=== PATIENT | female | born 2000 | race African-American/Black ===

== ENCOUNTER 2018-05-12 18:14 | Inpatient (IN) ==
[2018-05-12] MEDS ORDERED: Piperacil/Tazo 4.5 GM Premix 4.5 GM/100 ML BAG IV.SIG STA (20:02)
[2018-05-12] MEDS ORDERED: Acetaminophen 325 MG Tablet PO ONE (20:04)
--- NOTE | 2018-05-12 20:11 | ED ---
HPI General Chief complaint: KENO MANAGER Stated complaint: KENO MANAGER Time Seen by Provider: 05/12/18 19:51 Source: patient Mode of arrival: ambulatory Limitations: no limitations History of Present Illness HPI Narrative: The patient is a 17-year-old female that has been treating herself empirically for yeast infection for about a month without any relief. She stated that she has been doing sitz bath and 2 days ago she started noticing a swelling of her right vulva. She is not sexually active last coitus was 3 months ago. She was seen 2 years at another facility for similar symptoms and was treated for BV. She has an irregular.. Is presenting with a temperature of 101.7 and a pulse of 125. She has irregular periods. She is on oral contraceptives and last period was sometime last month she cannot remember the exact date MD Complaint: dysuria, possible STD and genital swelling Onset (ago): month(s) (1) Location: labia (righ lower) Severity: moderate Severity scale (1-10): 10 Quality: Sharp Duration: constant Relieving factors: none Exacerbating factors: movement Patient : No Related Data : 0 Home Medications Medication Instructions Recorded Confirmed No Known Home Medications 05/12/18 05/12/18 Allergies Allergy/AdvReac Type Severity Reaction Status Date / Time No Known Allergies Allergy Verified 05/12/18 18:32 Review of Systems ROS: all other systems reviewed are negative [facility] Medical History Medical History Patient denies medical problems (Acute) Surgical History Surgical History No history of previous surgery (Acute) Social History Social History Substance History: No History of Abuse Second Hand Smoke Exposure: No Smoking Status: Never smoker How Often Do You Have a Drink Containing Alcohol: Never Recent Travel in [facility] within the Last 8 Weeks: No Recent Out of Country Travel within the Last 8 Weeks: No Immunization History Tetanus Immunization: >5 Years Hx Influenza Vaccine This Season: No Exam Narrative Exam Narrative: GENERAL:alert and oriented in no distress SKIN: Focused skin assessment warm/dry. HEAD: Atraumatic. Normocephalic. EYES: Pupils equal and round. No scleral icterus. No injection or drainage. ENT: No nasal bleeding or discharge. Mucous membranes pink and moist. NECK: Trachea midline. No JVD. CARDIOVASCULAR: Regular rhythm. Tachycardia no murmur appreciated. RESPIRATORY: No accessory muscle use. Clear to auscultation. Breath sounds equal bilaterally. GASTROINTESTINAL: Abdomen soft, non-tender, nondistended. Hepatic and splenic margins not palpable. MUSCULOSKELETAL: No obvious deformities. No clubbing. No cyanosis. No edema. NEUROLOGICAL: Awake and alert. No obvious cranial nerve deficits. Motor grossly within normal limits. Normal speech. PSYCHIATRIC: Appropriate mood and affect; insight and judgment normal. Other: The patient has swelling of the right lower labial fold she was reluctant with the pelvic exam to begin with and when I tried to further palpate she asked me to stop so I did. Unsure whether she has an abscess or Bartholin's cyst. There was no vaginal discharge on external observation. Patient was told that I cannot diagnose her if I cannot examine her and she understands. Still does not want me to continue with genitourinary exam. Course Hospital Course: She is afebrile on recheck. We consulted KENO MANAGER who will come and evaluate the patient at bedside. She did refuse pelvic exam and further interventions at this time. Reevaluation(s) Reevaluation #1: Patient is resting comfortably no distress heart rate 99 bpm afebrile. Temperature 98.9 respirations 16 O2 saturation 100% room air blood pressure 120/65. Capillary refill intact. Time: 22:39 Consultations Consultation #1: KENO MANAGER on-call is going to come and evaluate the patient at bedside. Time: 22:40 Initial Documented Vital Signs Temperature 101.7 F H 05/12/18 18:26 Pulse Rate 125 H 18 18:26 Respiratory Rate 20 18 18:26 Blood Pressure 119/58 L 05/12/18 18:26 Pulse Oximetry 98 05/12/18 18:26 Last Documented Vital Signs Temperature 97.8 F 05/13/18 01:18 Pulse Rate 98 H 05/13/18 01:18 Respiratory Rate 16 05/13/18 01:18 Blood Pressure 104/56 L 05/13/18 01:18 Pulse Oximetry 98 05/13/18 01:18 Medical Decision Making MDM Narrative Medical Screen Exam Complete: Yes Emergency Medical Condition: Yes Lab Data Result diagrams: 05/12/18 20:05 05/12/18 20:05 Lab Results 05/12/18 05/12/18 05/12/18 Range/Units 20:05 20:05 20:05 WBC 21.2 H (4.0-11.0) th/mm3 RBC 4.52 (4.00-5.30) mil/mm3 Hgb 13.2 (11.6-15.3) gm/dL Hct 39.4 (35.0-46.0) % MCV 87.2 (80.0-100.0) fL MCH 29.1 (27.0-34.0) pg MCHC 33.4 (32.0-36.0) % RDW 13.3 (11.6-17.2) % Plt Count 178 (150-450) th/mm3 MPV 10.2 (7.0-11.0) fL Neut % (Auto) 79.9 H (16.0-70.0) % Lymph % (Auto) 9.9 (9.0-44.0) % [place] % (Auto) 9.3 H (0.0-8.0) % Eos % (Auto) 0.6 (0.0-4.0) % Baso % (Auto) 0.3 (0.0-2.0) % Neut # (Auto) 17.0 H (1.8-7.7) th/mm3 Lymph # (Auto) 2.1 (1.0-4.8) th/mm3 [place] # (Auto) 2.0 H (0.0-0.9) th/mm3 Eos # (Auto) 0.1 (0.0-0.4) th/mm3 Baso # (Auto) 0.1 (0.0-0.2) th/mm3 WBC Differential . Differential Comment Auto diff final Sodium 139 (136-145) meq/L Potassium 3.1 L (3.5-5.1) meq/L Chloride 104 (98-107) meq/L Carbon Dioxide 24.1 (21.0-32.0) meq/L Anion Gap 11 (5-15) meq/L BUN 7 (7-18) mg/dL Creatinine 0.71 (0.50-1.00) mg/dL Estimated GFR Greater than 89 (>89) mL/min Random Glucose 108 H (74-106) mg/dL Lactic Acid (0.4-2.0) mmol/L Calcium 8.5 (8.5-10.1) mg/dL Total Bilirubin 0.3 (0.2-1.0) mg/dL AST 13 L (16-38) U/L ALT 16 (9-42) U/L Alkaline Phosphatase 95 (45-117) U/L Total Protein 8.3 H (6.4-8.2) g/dL Albumin 3.8 (3.4-5.0) g/dL Beta HCG, Quant Less than 1 (0-5) mIU/mL Urine Color (Yellw/Straw) Urine Clarity (Clear) Urine pH (5.0-8.5) Ur Specific [place] (1.002-1.035) Urine Protein (Neg-Trace) mg/dL Urine Glucose (UA) (Negative) mg/dL Urine Ketones (Negative) mg/dL Urine Occult Blood (Negative) Urine Nitrate (Negative) Urine Bilirubin (Negative) Urine Urobilinogen (Less than 2) mg/dL Ur Leukocyte Esterase (Negative) Urine WBC (0-5) /hpf Ur Squamous Epith Cells (0-5) /hpf Urine Mucus (Occasional) /lpf Micro UA Comment Urine Culture Comments 05/12/18 05/12/18 Range/Units 20:05 20:25 WBC (4.0-11.0) th/mm3 RBC (4.00-5.30) mil/mm3 Hgb (11.6-15.3) gm/dL Hct (35.0-46.0) % MCV (80.0-100.0) fL MCH (27.0-34.0) pg MCHC (32.0-36.0) % RDW (11.6-17.2) % Plt Count (150-450) th/mm3 MPV (7.0-11.0) fL Neut % (Auto) (16.0-70.0) % Lymph % (Auto) (9.0-44.0) % [place] % (Auto) (0.0-8.0) % Eos % (Auto) (0.0-4.0) % Baso % (Auto) (0.0-2.0) % Neut # (Auto) (1.8-7.7) th/mm3 Lymph # (Auto) (1.0-4.8) th/mm3 [place] # (Auto) (0.0-0.9) th/mm3 Eos # (Auto) (0.0-0.4) th/mm3 Baso # (Auto) (0.0-0.2) th/mm3 WBC Differential Differential Comment Sodium (136-145) meq/L Potassium (3.5-5.1) meq/L Chloride (98-107) meq/L Carbon Dioxide (21.0-32.0) meq/L Anion Gap (5-15) meq/L BUN (7-18) mg/dL Creatinine (0.50-1.00) mg/dL Estimated GFR (>89) mL/min Random Glucose (74-106) mg/dL Lactic Acid 1.2 (0.4-2.0) mmol/L Calcium (8.5-10.1) mg/dL Total Bilirubin (0.2-1.0) mg/dL AST (16-38) U/L ALT (9-42) U/L Alkaline Phosphatase (45-117) U/L Total Protein (6.4-8.2) g/dL Albumin (3.4-5.0) g/dL Beta HCG, Quant (0-5) mIU/mL Urine Color Madhuri (Yellw/Straw) Urine Clarity Cloudy H (Clear) Urine pH 5.0 (5.0-8.5) Ur Specific [place] 1.028 (1.002-1.035) Urine Protein 30 H (Neg-Trace) mg/dL Urine Glucose (UA) Negative (Negative) mg/dL Urine Ketones Trace H (Negative) mg/dL Urine Occult Blood Negative (Negative) Urine Nitrate Negative (Negative) Urine Bilirubin Negative (Negative) Urine Urobilinogen 4 or greater (Less than 2) mg/dL Ur Leukocyte Esterase Negative (Negative) Urine WBC 1 (0-5) /hpf Ur Squamous Epith Cells 19 (0-5) /hpf Urine Mucus Many H (Occasional) /lpf Micro UA Comment Culture not ind Urine Culture Comments Culture not ind Imaging Data Radiologist's impression: Abdomen/Pelvis CT 05/12/18 20:01 CONCLUSION: 1. 3.1 x 2.1 cm cystic structure in the right adnexa characteristic of an ovarian cyst. 2. Study is otherwise unremarkable. Chest X-Ray 05/12/18 20:01 CONCLUSION: No acute cardiopulmonary disease. Discharge Plan Discharge Disposition Patient Disposition: 30 Still Patient Discharge Condition Condition: Stable Discharge Details Diagnosis: Fever, Leukocytosis Physicians Team ED Provider: Zackery Aaron Primary Care Provider: Primary Care Rosy Toussaint Attending Provider: Paxton Cunningham Other Providers: Vanda Warren Discharge Interventions Interventions: ED Discharge Assessment Last Done: 05/13/18 01:22 Status ED Status: Left Department Discharge Information Discharge Date/Time: 05/13/18 01:23
[2018-05-12] MEDS ORDERED: Sod Chloride 0.9% Inj 1,000 ML IV.SIG SCH (20:15)
[2018-05-12] MEDS ORDERED: Sod Chloride 0.9% Inj 800 ML IV.SIG SCH (20:15)
--- NOTE | 2018-05-12 20:24 | XR ---
EXAM DATE: 05/12/2018 8:19 PM EDT AGE/SEX: 17 years / Female INDICATIONS: Lightheaded, dizziness, and vomiting. CLINICAL DATA: This is the patient's initial encounter. Patient reports that signs and symptoms have been present for 1 day and indicates a pain score of 0/10. MEDICAL/SURGICAL HISTORY: None. None. COMPARISON: No prior exams available for comparison. FINDINGS: A single AP view of the chest demonstrates the lungs to be symmetrically aerated without evidence of mass, infiltrate or effusion. The cardiomediastinal contours are unremarkable. Osseous structures a re intact. CONCLUSION: No acute cardiopulmonary disease. Electronically signed by: Stuart Dunham MD 05/12/2018 8:22 PM EDT
[2018-05-12 20:50] LABS: Baso # (Auto) 0.1 th/mm3 (0.0-0.2); Baso % (Auto) 0.3 % (0.0-2.0); Eos # (Auto) 0.1 th/mm3 (0.0-0.4); Eos % (Auto) 0.6 % (0.0-4.0); Hematocrit 39.4 % (35.0-46.0); Hemoglobin 13.2 gm/dL (11.6-15.3); Lymph # (Auto) 2.1 th/mm3 (1.0-4.8); Lymph % (Auto) 9.9 % (9.0-44.0); Mean Corpuscular HGB Conc 33.4 % (32.0-36.0); Mean Corpuscular Hemoglobin 29.1 pg (27.0-34.0); Mean Corpuscular Volume 87.2 fL (80.0-100.0); Mean Platelet Volume 10.2 fL (7.0-11.0); Mono % (Auto) 9.3 % (0.0-8.0); Neut % (Auto) 79.9 % (16.0-70.0); Platelet Count 178 th/mm3 (150-450); Red Blood Count 4.52 mil/mm3 (4.00-5.30); Red Cell Distribution Width 13.3 % (11.6-17.2); White Blood Count 21.2 th/mm3 (4.0-11.0)
--- NOTE | 2018-05-12 20:57 | CT ---
EXAM DATE: 05/12/2018 8:51 PM EDT AGE/SEX: 17 years / Female INDICATIONS: Right labial swelling past 2 days. CLINICAL DATA: This is the patient's initial encounter. Patient reports that signs and symptoms have been present for 1 day and indicates a pain score of 6/10. MEDICAL/SURGICAL HISTORY: None. None. RADIATION DOSE: 4.62 CTDI (mGy) COMPARISON: No prior exams available for comparison. TECHNIQUE: Multiple contiguous axial images were obtained through the abdomen. Images were obtained using multiple row detector helical technique. Using automated exposure control and adjustment of the mA and/or kV according to patient size, radiation dose was kept as low as reasonably achievable to o btain optimal diagnostic quality images. DICOM format image data is available electronically for rev iew and comparison. FINDINGS: Lower Lungs: The visualized lower lungs are clear. Liver: The liver has a homogeneous density without space-occupying lesion. There is no dilation of th e biliary tree. Spleen: Homogeneous density without enlargement. Pancreas: Unremarkable without mass or calcification. Kidneys: Normal in size and shape. No evidence of mass or hydronephrosis. Adrenal Glands: Unremarkable. Aorta: The aorta and proximal iliac vessels are grossly unremarkable without aneurysmal dilation. Bowel/Mesentery: Oral contrast was given limiting the sensitivity for detection of bowel pathology. The bowel loops are grossly unremarkable. The cecum and sigmoid colon have a normal configuration. Abdominal Wall: Intact. Retroperitoneum: No evidence of adenopathy in the retrocrural, para-aortic, or deep pelvic regions. Bladder: Contours are smooth. Reproductive Organs: The uterus and left ovary are unremarkable. There is a 3.1 x 2.1 cm cystic stru cture in the right adnexa. Inguinal: The inguinal region is unremarkable without evidence of adenopathy. Bony Structures: Unremarkable. CONCLUSION: 1. 3.1 x 2.1 cm cystic structure in the right adnexa characteristic of an ovarian cyst. 2. Study is otherwise unremarkable. Electronically signed by: Stuart Dunham MD 05/12/2018 8:55 PM EDT
[2018-05-12 20:58] LABS: Bilirubin,Urine Negative (Negative); Clarity,Urine Cloudy (Clear); Color,Urine Amber (Yellw/Straw); Glucose,Urine (UA) Negative (Negative); Leukocyte Esterase,Urine Negative (Negative); Mucus,Urine Many /lpf (Occasional); Nitrite,Urine Negative (Negative); Specific Gravity,Urine 1.028 (1.002-1.035); Squamous Epithelial Cell,Urine 19 /hpf (0-5); Urobilinogen,Urine 4 or Greater mg/dL (Less than 2)
[2018-05-12 21:11] LABS: Albumin 3.8 g/dL (3.4-5.0); Anion Gap 11 meq/L (5-15); Aspartate Aminotransferase 13 U/L (16-38); Blood Urea Nitrogen 7 mg/dL (7-18); Calcium 8.5 mg/dL (8.5-10.1); Carbon Dioxide 24.1 meq/L (21.0-32.0); Chloride 104 meq/L (98-107); Glomerular Filtration Rate Greater Than 89 mL/min (>89); Glucose,Random 108 mg/dL (74-106); Potassium 3.1 meq/L (3.5-5.1); Sodium 139 meq/L (136-145)
[2018-05-12 21:13] LABS: Alanine Aminotransferase 16 U/L (9-42)
[2018-05-12 21:14] LABS: Alkaline Phosphatase 95 U/L (45-117); Total Protein 8.3 g/dL (6.4-8.2)
[2018-05-12] MEDS ORDERED: Zolpidem Tartrate 5 MG Tablet PO PRN (23:51)
[2018-05-13] MEDS ORDERED: Piperacil/Tazo 4.5 GM Premix 4.5 GM/100 ML BAG IV.SIG SCH
[2018-05-13] MEDS: Potassium Chloride Inj 10 MEQ in Sodium Chloride 0.45 % Inj 1,000 ML IV.CONT SCH ×4 (01:35→22:35)
[2018-05-13] MEDS: Ibuprofen 600 MG Tablet PO PRN (03:11)
[2018-05-13] MEDS: Piperacil/Tazo 4.5 GM Premix 4.5 GM/100 ML BAG IV.SIG SCH ×3 (05:08→21:11)
[2018-05-13 08:31] LABS: Baso % (Auto) 0.2 % (0.0-2.0); Eos # (Auto) 0.1 th/mm3 (0.0-0.4); Eos % (Auto) 0.3 % (0.0-4.0); Hematocrit 34.8 % (35.0-46.0); Hemoglobin 11.7 gm/dL (11.6-15.3); Lymph # (Auto) 1.5 th/mm3 (1.0-4.8); Lymph % (Auto) 7.6 % (9.0-44.0); Mean Corpuscular HGB Conc 33.6 % (32.0-36.0); Mean Corpuscular Hemoglobin 29.4 pg (27.0-34.0); Mean Corpuscular Volume 87.7 fL (80.0-100.0); Mean Platelet Volume 9.8 fL (7.0-11.0); Mono # (Auto) 1.5 th/mm3 (0.0-0.9); Mono % (Auto) 7.4 % (0.0-8.0); Neut # (Auto) 16.8 th/mm3 (1.8-7.7); Neut % (Auto) 84.5 % (16.0-70.0); Platelet Count 157 th/mm3 (150-450); Red Blood Count 3.97 mil/mm3 (4.00-5.30); Red Cell Distribution Width 13.2 % (11.6-17.2); White Blood Count 19.9 th/mm3 (4.0-11.0)
[2018-05-13 09:11] LABS: Anion Gap 7 meq/L (5-15); Blood Urea Nitrogen 4 mg/dL (7-18); Calcium 7.6 mg/dL (8.5-10.1); Carbon Dioxide 24.9 meq/L (21.0-32.0); Chloride 109 meq/L (98-107); Glomerular Filtration Rate Greater Than 89 mL/min (>89); Glucose,Random 78 mg/dL (74-106); Potassium 3.4 meq/L (3.5-5.1); Sodium 141 meq/L (136-145)
--- NOTE | 2018-05-13 14:54 | P.PN ---
Subjective Interval history: Feeling ok. I am vomiting again now. I do not have any nausea now Can the IV fluids cause me to have loose stools My vulva on the right is still slightly tender. No headache, sob or other pains Physical Exam Vital signs: Vital Signs 05/12/18 18:26 05/12/18 21:50 05/13/18 01:18 Temperature 101.7 F H 98.9 F 97.8 F Pulse Rate 125 H 105 H 98 H Respiratory Rate 20 16 16 Blood Pressure 119/58 L 120/65 104/56 L Pulse Oximetry 98 100 98 05/13/18 08:00 05/13/18 12:00 Temperature 97.3 F L 98.5 F Pulse Rate 100 H 104 H Respiratory Rate 18 18 Blood Pressure 108/58 L 99/55 L Pulse Oximetry 98 99 Intake & Output 05/12/18 05/13/18 05/13/18 18:59 06:59 18:59 Intake Total 1999 1105 / 1105 Balance 1999 1105 / 1105 Weight 47.174 kg 48.9 kg Intake: IV 1999 1105 / 1105 KCl Inj 10 MEQ In 1/2 Normal 1005 / 1005 Saline Inj 1,000 ML @ 150 mls/ hr IV.CONT .Q6H42M JACINTA Rx#: [id number] Zosyn 4.5 GM Premix 4.5 gm In 200 / 200 100 / 100 100 ml @ 100 mls/hr IV.SIG Q8H JACINTA Rx#:[id number] NS Inj 800 ML @ Wide Open IV. 1800 / 1800 SIG .Q0M JACINTA Rx#:[id number] Other: # Voids 1 # Emeses 1 - Constitutional no acute distress - Routine HEENT Exam Head: Present: normocephalic, atraumatic - Routine Neck Exam Present: supple - Routine Abdominal Exam Present: soft, normoactive bowel sounds Results - Labs CBC & Chem 7: 05/13/18 07:27 05/13/18 07:27 Laboratory Results - last 24 hr 05/12/18 05/12/18 05/12/18 20:05 20:05 20:05 WBC 21.2 H RBC 4.52 Hgb 13.2 Hct 39.4 MCV 87.2 MCH 29.1 MCHC 33.4 RDW 13.3 Plt Count 178 MPV 10.2 Neut % (Auto) 79.9 H Lymph % (Auto) 9.9 Nicholas % (Auto) 9.3 H Eos % (Auto) 0.6 Baso % (Auto) 0.3 Neut # (Auto) 17.0 H Lymph # (Auto) 2.1 Nicholas # (Auto) 2.0 H Eos # (Auto) 0.1 Baso # (Auto) 0.1 WBC Differential . Differential Comment Auto diff final Sodium 139 Potassium 3.1 L Chloride 104 Carbon Dioxide 24.1 Anion Gap 11 BUN 7 Creatinine 0.71 Estimated GFR Greater than 89 Random Glucose 108 H Lactic Acid Calcium 8.5 Total Bilirubin 0.3 AST 13 L ALT 16 Alkaline Phosphatase 95 Total Protein 8.3 H Albumin 3.8 Beta HCG, Quant Less than 1 Urine Color Urine Clarity Urine pH Ur Specific [place] Urine Protein Urine Glucose (UA) Urine Ketones Urine Occult Blood Urine Nitrate Urine Bilirubin Urine Urobilinogen Ur Leukocyte Esterase Urine WBC Ur Squamous Epith Cells Urine Mucus Micro UA Comment Urine Culture Comments 05/12/18 05/12/18 05/13/18 20:05 20:25 07:27 WBC 19.9 H RBC 3.97 L Hgb 11.7 Hct 34.8 L MCV 87.7 MCH 29.4 MCHC 33.6 RDW 13.2 Plt Count 157 MPV 9.8 Neut % (Auto) 84.5 H Lymph % (Auto) 7.6 L Nicholas % (Auto) 7.4 Eos % (Auto) 0.3 Baso % (Auto) 0.2 Neut # (Auto) 16.8 H Lymph # (Auto) 1.5 Nicholas # (Auto) 1.5 H Eos # (Auto) 0.1 Baso # (Auto) 0.0 WBC Differential . Differential Comment Auto diff final Sodium Potassium Chloride Carbon Dioxide Anion Gap BUN Creatinine Estimated GFR Random Glucose Lactic Acid 1.2 Calcium Total Bilirubin AST ALT Alkaline Phosphatase Total Protein Albumin Beta HCG, Quant Urine Color Madhuri Urine Clarity Cloudy H Urine pH 5.0 Ur Specific [place] 1.028 Urine Protein 30 H Urine Glucose (UA) Negative Urine Ketones Trace H Urine Occult Blood Negative Urine Nitrate Negative Urine Bilirubin Negative Urine Urobilinogen 4 or greater Ur Leukocyte Esterase Negative Urine WBC 1 Ur Squamous Epith Cells 19 Urine Mucus Many H Micro UA Comment Culture not ind Urine Culture Comments Culture not ind 05/13/18 07:27 WBC RBC Hgb Hct MCV MCH MCHC RDW Plt Count MPV Neut % (Auto) Lymph % (Auto) Nicholas % (Auto) Eos % (Auto) Baso % (Auto) Neut # (Auto) Lymph # (Auto) Nicholas # (Auto) Eos # (Auto) Baso # (Auto) WBC Differential Differential Comment Sodium 141 Potassium 3.4 L Chloride 109 H Carbon Dioxide 24.9 Anion Gap 7 BUN 4 L Creatinine 0.58 Estimated GFR Greater than 89 Random Glucose 78 Lactic Acid Calcium 7.6 L D Total Bilirubin AST ALT Alkaline Phosphatase Total Protein Albumin Beta HCG, Quant Urine Color Urine Clarity Urine pH Ur Specific [place] Urine Protein Urine Glucose (UA) Urine Ketones Urine Occult Blood Urine Nitrate Urine Bilirubin Urine Urobilinogen Ur Leukocyte Esterase Urine WBC Ur Squamous Epith Cells Urine Mucus Micro UA Comment Urine Culture Comments Microbiology 05/12/18 20:02 Blood - Peripheral Aerobic Blood Culture - Preliminary No growth in 1 day 05/12/18 20:02 Blood - Peripheral Anaerobic Blood Culture - Preliminary No growth in 1 day 05/12/18 20:02 Blood - Peripheral Aerobic Blood Culture - Preliminary No growth in 1 day 05/12/18 20:02 Blood - Peripheral Anaerobic Blood Culture - Preliminary No growth in 1 day - Imaging Impressions Abdomen/Pelvis CT 05/12/18 20:01 CONCLUSION: 1. 3.1 x 2.1 cm cystic structure in the right adnexa characteristic of an ovarian cyst. 2. Study is otherwise unremarkable. Chest X-Ray 05/12/18 20:01 CONCLUSION: No acute cardiopulmonary disease. Assessment and Plan - Plan HD #2 FUO her wbc is still high and I see no source of infection. Her vulva is very slg tender and swollen but I do not believe this is the source. Will have ID specialist see her and for now continue IV abs. Hypokalemia Continue IV K+. Discussed Condition With: Patient
--- NOTE | 2018-05-13 16:39 | ECG ---
Date Performed: 05/13/2018 Time Performed: 00:34:19 PTAGE: 17 years EKG: SINUS TACHYCARDIA ABNORMAL RHYTHM ECG NO PREVIOUS TRACING DOCTOR: Paxton Carmen Interpretating Date/Time 05/13/2018 16:37:43
[2018-05-13] MEDS ORDERED: Vancomycin Consult Pharmacy 1 EACH OTHER SCH (19:00)
--- NOTE | 2018-05-13 19:00 | P.CONID ---
History of Present Illness Service: Infectious Disease Consult date: 05/13/18 Requesting Physician: Paxton Cunningham Reason for Consult: Evaluation and management of fever of unknown origin. Primary Care Provider: No Primary Care Physician History of Present Illness: Ms. Mccann is a 17-year-old -[place] female with no significant past medical history. Patient was admitted for evaluation of fever of unknown origin. Patient reports that approximately 2-3 days prior to admission she ate at a [employer] and 24 hours after that she started having nausea vomiting. Patient reports that she also stayed at a local hotel/resort and used their toiletries. Patient also reports having shaved in that area during the same time and reports she had tenderness in the right vulvar region. She reports white discharge per vaginally off and on. Patient continues to have fever during hospitalization and has an elevated white count as well suggestive of sepsis. Workup has been initiated and cultures are no growth so far. Dr. Cunningham of gynecology has been following the patient and reports that patient has not had any have any evidence of pelvic inflammatory disease in this admission. A UA was done which is negative. We will check GC and chlamydia as well as RPR. Infectious diseases consulted for evaluation and management of fever of unknown origin. Pertinent positives and negatives for evaluation of fever of unknown origin No rash No joint pains No recent travel No recent experimentation with other routes of sex such as oral anal. Patient denies any perirectal discomfort. Review of Systems All other systems reviewed negative except as stated in HPI PMFSH - History History Provided By: Patient - Medical History Medical History: Medical History (Last Reviewed 05/12/18 @ 20:09 by Zackery Aaron DO) Patient denies medical problems - Surgical History Surgical History: Surgical History (Last Reviewed 05/12/18 @ 20:09 by Zackery Aaron DO) No history of previous surgery - Tobacco History Second Hand Smoke Exposure: No Tobacco Use In Past 30 Days: No Smoking Status: Never smoker - Alcohol History How Often Do You Have a Drink Containing Alcohol: Never - Substance Use History Substance History: No History of Abuse - Travel History Recent Travel in the [place] Within the Last 8 Weeks: No Recent Travel Out of the Country Within the Last 8 Weeks: No - Immunization History Tetanus Immunization: >5 Years Hx Influenza Vaccine This Season: No Medications and Allergies Active Medications: Active Medications Hydrocodone Bitart/Acetaminophen ([place] 5/325) 1 tab PO Q4H PRN PRN Reason: PAIN 9-10 Last Admin: 05/13/18 16:05 Dose: 1 tab Sodium Chloride (Ns Inj) 1,000 mls @ 0 mls/hr IV.SIG .Q0M JACINTA Last Infusion: 05/13/18 05:56 Dose: Infused Sodium Chloride (Ns Inj) 800 mls @ 0 mls/hr IV.SIG .Q0M JACINTA Last Infusion: 05/13/18 05:57 Dose: Infused Piperacillin/Tazobactam/Dextrose (Zosyn 4.5 Gm Premix) 4.5 gm in 100 mls @ 100 mls/hr IV.SIG Q8H JACINTA Last Infusion: 05/13/18 13:51 Dose: Infused Potassium Chloride 10 meq/ (Sodium Chloride) 1,005 mls @ 150 mls/hr IV.CONT .Q6H42M JACINTA Last Admin: 05/13/18 16:48 Dose: 150 mls/hr Pharmacy Profile Note (Vancomycin Consult Pharmacy) 0 mls @ 0 mls/hr [facility] Ibuprofen (Motrin) 600 mg PO Q4H PRN PRN Reason: PAIN 2-8 Last Admin: 05/13/18 03:11 Dose: 600 mg Zolpidem Tartrate (Ambien) 5 mg PO HS PRN PRN Reason: INSOMNIA Allergies Allergy/AdvReac Type Severity Reaction Status Date / Time No Known Allergies Allergy Verified 05/12/18 18:32 Home Medications Medication Instructions Recorded Confirmed Type No Known Home Medications 05/12/18 05/12/18 History Exam Vital signs: Vital Signs 05/12/18 21:50 05/13/18 01:18 05/13/18 08:00 Temperature 98.9 F 97.8 F 97.3 F L Pulse Rate 105 H 98 H 100 H Respiratory Rate 16 16 18 Blood Pressure 120/65 104/56 L 108/58 L Pulse Oximetry 100 98 98 05/13/18 12:00 05/13/18 16:00 Temperature 98.5 F 98.3 F Pulse Rate 104 H 90 Respiratory Rate 18 18 Blood Pressure 99/55 L 98/53 L Pulse Oximetry 99 99 Intake & Output 05/13/18 05/13/18 05/14/18 06:59 18:59 06:59 Intake Total 1999 Balance 1999 Weight 48.9 kg Intake: IV 1999 KCl Inj 10 MEQ In 1/2 Normal 2009 Saline Inj 1,000 ML @ 150 mls/ hr IV.CONT .Q6H42M JACINTA Rx#: [id number] Zosyn 4.5 GM Premix 4.5 gm In 200 / 200 100 / 100 100 ml @ 100 mls/hr IV.SIG Q8H JAC[facility]TA Rx#:[id number] NS Inj 800 ML @ Wide Open IV. 1800 / 1800 SIG .Q0M JACINTA Rx#:[id number] Other: # Voids 1 4 # Bowel Movements 1 # [place] 1 Narrative: GENERAL: Well-nourished well-developed, not in acute distress SKIN: Cool and dry, no generalized rash HEAD: Atraumatic. Normocephalic. No temporal or scalp tenderness. EYES: Pupils equal round and reactive. Scleral icterus. No injection or drainage. No petechia ENT: Nothing abnormal detected NECK: Trachea midline. Supple, nontender, no meningeal signs. CARDIOVASCULAR: HS audible. RESPIRATORY: Clear to auscultation bilaterally. GASTROINTESTINAL: Abdomen soft nontender. MUSCULOSKELETAL: Extremities without clubbing, cyanosis. NEUROLOGICAL: Alert oriented 3. Nonfocal. REGIONAL EDUCATION MANAGER exam right labial folds significantly swollen compared to the other side especially on the part closer to the perirectal area with significant tenderness and induration noted. Psych cooperative IV line sites ok. Results - Labs CBC & Chem 7: 05/13/18 07:27 05/13/18 07:27 Labs: Laboratory Results - last 24 hr 05/12/18 05/12/18 05/12/18 20:05 20:05 20:05 WBC 21.2 H RBC 4.52 Hgb 13.2 Hct 39.4 MCV 87.2 MCH 29.1 MCHC 33.4 RDW 13.3 Plt Count 178 MPV 10.2 Neut % (Auto) 79.9 H Lymph % (Auto) 9.9 [place] % (Auto) 9.3 H Eos % (Auto) 0.6 Baso % (Auto) 0.3 Neut # (Auto) 17.0 H Lymph # (Auto) 2.1 [place] # (Auto) 2.0 H Eos # (Auto) 0.1 Baso # (Auto) 0.1 WBC Differential . Differential Comment Auto diff final Sodium 139 Potassium 3.1 L Chloride 104 Carbon Dioxide 24.1 Anion Gap 11 BUN 7 Creatinine 0.71 Estimated GFR Greater than 89 Random Glucose 108 H Lactic Acid Calcium 8.5 Total Bilirubin 0.3 AST 13 L ALT 16 Alkaline Phosphatase 95 Total Protein 8.3 H Albumin 3.8 Beta HCG, Quant Less than 1 Urine Color Urine Clarity Urine pH Ur Specific [place] Urine Protein Urine Glucose (UA) Urine Ketones Urine Occult Blood Urine Nitrate Urine Bilirubin Urine Urobilinogen Ur Leukocyte Esterase Urine WBC Ur Squamous Epith Cells Urine Mucus Micro UA Comment Urine Culture Comments 05/12/18 05/12/18 05/13/18 20:05 20:25 07:27 WBC 19.9 H RBC 3.97 L Hgb 11.7 Hct 34.8 L MCV 87.7 MCH 29.4 MCHC 33.6 RDW 13.2 Plt Count 157 MPV 9.8 Neut % (Auto) 84.5 H Lymph % (Auto) 7.6 L [place] % (Auto) 7.4 Eos % (Auto) 0.3 Baso % (Auto) 0.2 Neut # (Auto) 16.8 H Lymph # (Auto) 1.5 [place] # (Auto) 1.5 H Eos # (Auto) 0.1 Baso # (Auto) 0.0 WBC Differential . Differential Comment Auto diff final Sodium Potassium Chloride Carbon Dioxide Anion Gap BUN Creatinine Estimated GFR Random Glucose Lactic Acid 1.2 Calcium Total Bilirubin AST ALT Alkaline Phosphatase Total Protein Albumin Beta HCG, Quant Urine Color [place] Urine Clarity Cloudy H Urine pH 5.0 Ur Specific [place] 1.028 Urine Protein 30 H Urine Glucose (UA) Negative Urine Ketones Trace H Urine Occult Blood Negative Urine Nitrate Negative Urine Bilirubin Negative Urine Urobilinogen 4 or greater Ur Leukocyte Esterase Negative Urine WBC 1 Ur Squamous Epith Cells 19 Urine Mucus Many H Micro UA Comment Culture not ind Urine Culture Comments Culture not ind 05/13/18 07:27 WBC RBC Hgb Hct MCV MCH MCHC RDW Plt Count MPV Neut % (Auto) Lymph % (Auto) [place] % (Auto) Eos % (Auto) Baso % (Auto) Neut # (Auto) Lymph # (Auto) [place] # (Auto) Eos # (Auto) Baso # (Auto) WBC Differential Differential Comment Sodium 141 Potassium 3.4 L Chloride 109 H Carbon Dioxide 24.9 Anion Gap 7 BUN 4 L Creatinine 0.58 Estimated GFR Greater than 89 Random Glucose 78 Lactic Acid Calcium 7.6 L D Total Bilirubin AST ALT Alkaline Phosphatase Total Protein Albumin Beta HCG, Quant Urine Color Urine Clarity Urine pH Ur Specific [place] Urine Protein Urine Glucose (UA) Urine Ketones Urine Occult Blood Urine Nitrate Urine Bilirubin Urine Urobilinogen Ur Leukocyte Esterase Urine WBC Ur Squamous Epith Cells Urine Mucus Micro UA Comment Urine Culture Comments - Imaging Impressions Abdomen/Pelvis CT 05/12/18 20:01 CONCLUSION: 1. 3.1 x 2.1 cm cystic structure in the right adnexa characteristic of an ovarian cyst. 2. Study is otherwise unremarkable. Chest X-Ray 05/12/18 20:01 CONCLUSION: No acute cardiopulmonary disease. Assessment and Plan - Plan Sepsis present on admission Fever of unknown origin likely source appears to be the vulvar abscess/ cellulitis Vulvar abscess/cellulitis Leukocytosis Recommendations: Continue Zosyn IV for now Start vancomycin IV suspect MRSA related cellulitis secondary to shaving in that area Start Diflucan as patient is complained of white discharge can possible fungal element Check GC and Chlamydia PCR Check RPR If fevers persist despite antibiotics we will check HIV for acute retroviral infection Follow cultures Follow clinically Case discussed with Dr. Cunningham Case discussed with patient's mother after patient consented.
[2018-05-13] MEDS ORDERED: Vancomycin Inj 1,250 MG in Sodium Chlor 0.9% Inj 250 ML IV.SIG ONE (21:00)
[2018-05-13] MEDS: Fluconazole 100 MG Tablet PO SCH (21:11)
[2018-05-14] MEDS: Potassium Chloride Inj 10 MEQ in Sodium Chloride 0.45 % Inj 1,000 ML IV.CONT SCH ×3 (04:15→18:01)
[2018-05-14] MEDS: Piperacil/Tazo 4.5 GM Premix 4.5 GM/100 ML BAG IV.SIG SCH ×2 (04:16→12:01)
[2018-05-14] MEDS: Vancomycin Inj 750 MG in Sodium Chlor 0.9% Inj 250 ML IV.SIG SCH (09:17)
[2018-05-14] MEDS: Fluconazole 100 MG Tablet PO SCH (09:17)
[2018-05-14] MEDS: Ibuprofen 600 MG Tablet PO PRN (12:12)
--- NOTE | 2018-05-14 13:49 | P.PNID ---
Subjective Remarks: Ms. Mccann is a 17-year-old -[place]ish female with no significant past medical history. Patient was admitted for evaluation of fever of unknown origin. Patient reports that approximately 2-3 days prior to admission she ate at a [employer] and 24 hours after that she started having nausea vomiting. Patient reports that she also stayed at a local hotel/resort and used their toiletries. Patient also reports having shaved in that area during the same time and reports she had tenderness in the right vulvar region. She reports white discharge per vaginally off and on. Patient continues to have fever during hospitalization and has an elevated white count as well suggestive of sepsis. Workup has been initiated and cultures are no growth so far. Dr. Cunningham of gynecology has been following the patient and reports that patient has not had any have any evidence of pelvic inflammatory disease in this admission. A UA was done which is negative. We will check GC and chlamydia as well as RPR. Infectious diseases consulted for evaluation and management of fever of unknown origin. Pertinent positives and negatives for evaluation of fever of unknown origin No rash No joint pains No recent travel No recent experimentation with other routes of sex such as oral anal. Patient denies any perirectal discomfort. Overnight events reviewed. Fevers defervesced since addition of vancomycin IV Still complains of nausea. Reports inability to eat due to nausea but RN reports that she has a several times since last night. Denies any heartburn. Her epigastric pain or anything suggestive of reflux esophagitis. Patient is on Motrin as well as Lortab off and on. As needed. Antibiotics: Zosyn IV Vancomycin IV Lines: Line sites okay. Past Medical History: Reviewed. Allergies/Adverse Reactions: Allergies No Known Allergies Allergy (Verified 05/12/18 18:32) Objective Vital Signs 05/13/18 16:00 05/13/18 20:00 05/13/18 20:35 Temperature 98.3 F 98.5 F Pulse Rate 90 101 H 95 H Respiratory Rate 18 18 Blood Pressure 98/53 L 109/62 Pulse Oximetry 99 97 05/14/18 00:50 05/14/18 04:00 05/14/18 04:40 Temperature 98.9 F 98.3 F Pulse Rate 109 H 106 H 109 H Respiratory Rate 16 16 Blood Pressure 94/47 L 103/53 L Pulse Oximetry 98 95 05/14/18 08:00 05/14/18 12:00 Temperature 99.1 F 98.8 F Pulse Rate 108 H 99 H Respiratory Rate 17 17 Blood Pressure 111/54 L 110/66 Pulse Oximetry 96 98 Intake & Output 05/13/18 05/14/18 05/14/18 18:59 06:59 18:59 Intake Total 2109 2285 / 2285 1262.5 / 1262.5 Balance 2109 2285 / 2285 1262.5 / 1262.5 Weight 48.9 kg Intake: IV 2109 1705 / 1705 1262.5 / 1262.5 KCl Inj 10 MEQ In 1/2 Normal 2009 1005 / 1005 1005 / 1005 Saline Inj 1,000 ML @ 150 mls/ hr IV.CONT .Q6H42M JACINTA Rx#: [id number] Zosyn 4.5 GM Premix 4.5 gm In 100 / 100 200 / 200 100 ml @ 100 mls/hr IV.SIG Q8H JACINTA Rx#:[id number] Vancomycin Inj 750 MG In NS Inj 500 / 500 257.5 / 257.5 250 ML @ 250 mls/hr IV.SIG Q12H JACINTA Rx#:[id number] Oral 580 / 580 Other: # Voids 4 3 # Bowel Movements 1 05/12/18 20:02 Blood - Peripheral Aerobic Blood Culture - Preliminary No growth in 2 days 05/12/18 20:02 Blood - Peripheral Anaerobic Blood Culture - Preliminary No growth in 2 days 05/12/18 20:02 Blood - Peripheral Aerobic Blood Culture - Preliminary No growth in 2 days 05/12/18 20:02 Blood - Peripheral Anaerobic Blood Culture - Preliminary No growth in 2 days Lab - Hematology Results 05/12/18 05/13/18 20:05 07:27 WBC 21.2 H 19.9 H RBC 4.52 3.97 L Hgb 13.2 11.7 Hct 39.4 34.8 L MCV 87.2 87.7 MCH 29.1 29.4 MCHC 33.4 33.6 RDW 13.3 13.2 Plt Count 178 157 MPV 10.2 9.8 Neut % (Auto) 79.9 H 84.5 H Lymph % (Auto) 9.9 7.6 L [place] % (Auto) 9.3 H 7.4 Eos % (Auto) 0.6 0.3 Baso % (Auto) 0.3 0.2 Neut # (Auto) 17.0 H 16.8 H Lymph # (Auto) 2.1 1.5 [place] # (Auto) 2.0 H 1.5 H Eos # (Auto) 0.1 0.1 Baso # (Auto) 0.1 0.0 WBC Differential . . Differential Comment Auto diff final Auto diff final Lab - Chemistry Results 05/12/18 05/12/18 05/12/18 20:05 20:05 20:05 Sodium 139 Potassium 3.1 L Chloride 104 Carbon Dioxide 24.1 Anion Gap 11 BUN 7 Creatinine 0.71 Estimated GFR Greater than 89 Random Glucose 108 H Lactic Acid 1.2 Calcium 8.5 Total Bilirubin 0.3 AST 13 L ALT 16 Alkaline Phosphatase 95 Total Protein 8.3 H Albumin 3.8 Beta HCG, Quant Less than 1 05/13/18 07:27 Sodium 141 Potassium 3.4 L Chloride 109 H Carbon Dioxide 24.9 Anion Gap 7 BUN 4 L Creatinine 0.58 Estimated GFR Greater than 89 Random Glucose 78 Lactic Acid Calcium 7.6 L D Total Bilirubin AST ALT Alkaline Phosphatase Total Protein Albumin Beta HCG, Quant Imaging: ITS Impressions Abdomen/Pelvis CT 05/12/18 20:01 CONCLUSION: 1. 3.1 x 2.1 cm cystic structure in the right adnexa characteristic of an ovarian cyst. 2. Study is otherwise unremarkable. Chest X-Ray 05/12/18 20:01 CONCLUSION: No acute cardiopulmonary disease. Physical Exam: GENERAL: Well-nourished well-developed, not in acute distress SKIN: Cool and dry, no generalized rash HEAD: Atraumatic. Normocephalic. No temporal or scalp tenderness. EYES: Pupils equal round and reactive. Scleral icterus. No injection or drainage. No petechia ENT: Nothing abnormal detected NECK: Trachea midline. Supple, nontender, no meningeal signs. CARDIOVASCULAR: HS audible. RESPIRATORY: Clear to auscultation bilaterally. GASTROINTESTINAL: Abdomen soft nontender. MUSCULOSKELETAL: Extremities without clubbing, cyanosis. NEUROLOGICAL: Alert oriented 3. Nonfocal. DEPUTY PROGRAM MANAGER exam right labial folds significantly swollen compared to the other side especially on the part closer to the perirectal area with significant tenderness and induration noted. Slightly better than yesterday. Psych cooperative IV line sites ok. Assessment and Plan - Plan Sepsis present on admission Fever of unknown origin likely source appears to be the vulvar abscess/ cellulitis Vulvar abscess/cellulitis Leukocytosis Recommendations: DC Zosyn IV Start oral Bactrim DS Continue vancomycin IV suspect MRSA related cellulitis secondary to shaving in that area. Continue Diflucan as patient is complained of white discharge can possible fungal element Asked RN to send UA and Urine for GC and Chlamydia PCR Continue Sitz baths as it seems to have helped soften the area of induration. If fevers persist despite antibiotics we will check HIV for acute retroviral infection Follow cultures Follow clinically Case discussed with patient and RN. patient examined in presence of RN.
--- NOTE | 2018-05-14 15:38 | P.PN ---
Subjective Interval history: Doing ok, having some N/V today. The pelvic area feels a little better. Not eating well yet. Physical Exam Vital signs: Vital Signs 05/13/18 16:00 05/13/18 20:00 05/13/18 20:35 Temperature 98.3 F 98.5 F Pulse Rate 90 101 H 95 H Respiratory Rate 18 18 Blood Pressure 98/53 L 109/62 Pulse Oximetry 99 97 05/14/18 00:50 05/14/18 04:00 05/14/18 04:40 Temperature 98.9 F 98.3 F Pulse Rate 109 H 106 H 109 H Respiratory Rate 16 16 Blood Pressure 94/47 L 103/53 L Pulse Oximetry 98 95 05/14/18 08:00 05/14/18 12:00 Temperature 99.1 F 98.8 F Pulse Rate 108 H 99 H Respiratory Rate 17 17 Blood Pressure 111/54 L 110/66 Pulse Oximetry 96 98 Intake & Output 05/13/18 05/14/18 05/14/18 18:59 06:59 18:59 Intake Total 2109 2285 / 2285 1362.5 / 1362.5 Balance 2109 2285 / 2285 1362.5 / 1362.5 Weight 48.9 kg Intake: IV 2109 1705 / 1705 1362.5 / 1362.5 KCl Inj 10 MEQ In 1/2 Normal 2009 1005 / 1005 1005 / 1005 Saline Inj 1,000 ML @ 150 mls/ hr IV.CONT .Q6H42M [facility] Rx#: [id number] Zosyn 4.5 GM Premix 4.5 gm In 100 / 100 200 / 200 100 / 100 100 ml @ 100 mls/hr IV.SIG Q8H [facility]ACINTA Rx#:[id number] Vancomycin Inj 750 MG In NS Inj 500 / 500 257.5 / 257.5 250 ML @ 250 mls/hr IV.SIG Q12H JACINTA Rx#:[id number] Oral 580 / 580 Other: # Voids 4 3 # Bowel Movements 1 - Constitutional no acute distress - Routine HEENT Exam Head: Present: normocephalic - Routine Neck Exam Present: supple - Routine Respiratory Exam Present: CTA bilaterally - Routine Cardiovascular Exam Present: RRR - Routine Exam Patient deferred: external exam Groin: Present: tenderness, swelling (Right vulva is less swollen and less tender. ) Results - Labs CBC & Chem 7: 05/13/18 07:27 05/13/18 07:27 Laboratory Results - last 24 hr 05/13/18 22:30 Chlam trachomat DNA PCR Not detected N.gonorrhoeae DNA (PCR) Not detected Microbiology 05/12/18 20:02 Blood - Peripheral Aerobic Blood Culture - Preliminary No growth in 2 days 05/12/18 20:02 Blood - Peripheral Anaerobic Blood Culture - Preliminary No growth in 2 days 05/12/18 20:02 Blood - Peripheral Aerobic Blood Culture - Preliminary No growth in 2 days 05/12/18 20:02 Blood - Peripheral Anaerobic Blood Culture - Preliminary No growth in 2 days Assessment and Plan - Plan HD #3 FUO W/U is negative so far. CXs and ct and GC are all negative. Fever is resolving nicely on the antibiotics. Need to check the RPR as it is still pending. Hypokalemia. Better now and will recheck tomorrow. Continue IV K+ for now. Will slow down the IVF. Vomiting.. advised to eat bland food and stay away from water. Will get her some Gatoraid. Consider d/c home soon if ok with ID.
[2018-05-14] MEDS: Famotidine 20 MG Tablet PO SCH (22:26)
[2018-05-15] MEDS: Potassium Chloride Inj 10 MEQ in Sodium Chloride 0.45 % Inj 1,000 ML IV.CONT SCH ×2 (02:44→13:01)
[2018-05-15] MEDS: Vancomycin Inj 750 MG in Sodium Chlor 0.9% Inj 250 ML IV.SIG SCH (03:31)
[2018-05-15 04:10] LABS: Bilirubin,Urine Negative (Negative); Clarity,Urine Clear (Clear); Color,Urine Straw (Yellw/Straw); Glucose,Urine (UA) Negative (Negative); Hyaline Casts,Urine 1 /lpf (0-3); Leukocyte Esterase,Urine Negative (Negative); Mucus,Urine Few /lpf (Occasional); Nitrite,Urine Negative (Negative); Specific Gravity,Urine 1.006 (1.002-1.035); Squamous Epithelial Cell,Urine 1 /hpf (0-5)
--- NOTE | 2018-05-15 07:19 | MH ---
cc: Spenser Cunningham MD DATE OF ADMISSION: 05/13/2018 HISTORY OF PRESENT ILLNESS: Ms. Mccann is a 17-year-old black female who came to the emergency room after treating herself for a yeast infection. She has been having some right vulvar swelling for the past 2 days. She says it is slightly tender. She was seen in the emergency department, had a presenting temperature of 101.7 and a pulse of 125. Her white count was 21. The physician in the emergency department had a hard time doing the pelvic exam because she is quite shy. Because of that, he consulted me. She has a Nexplanon for prevention in her left arm. She denies any or GI symptoms. She does have some right vulvar tenderness for the last 2 days. PAST CONCRETE TECHNICIAN HISTORY: She has never had a Pap because of her age. She has not been active for several months. She has no history of STDs. She has no history of trauma down there. She has never seen a aircraft rigging and controls mechanic. PAST SURGICAL HISTORY: Negative. PAST MEDICAL HISTORY: Negative. SOCIAL HISTORY: She is single. She has never smoked, never drank, never taken drugs. FAMILY HISTORY: Noncontributory. ALLERGIES: NO KNOWN DRUG ALLERGIES. CURRENT MEDICATIONS: Nexplanon in her left arm for contraception. REVIEW OF SYSTEMS: HEAD AND NECK: She denies headaches. She denies any neck pain or stiffness. CHEST: She has no shortness of breath, cough or cold symptoms. No flu-like symptoms. She has no chest pressure or chest pain. ABDOMEN: She has no diarrhea or constipation. She does have some nausea and vomiting a day ago. PELVIC: She has irregular periods. She is on the Nexplanon. She has no signs or symptoms of except for the throwing up the other day, which has resolved. PHYSICAL EXAMINATION: GENERAL: Reveals a well-developed, well-nourished female resting comfortably in bed. VITAL SIGNS: Her initial temperature was 101.7. Followup temperature is 98.9. Her pulse was 105, her respirations are 16 and nonlabored. Her blood pressure is 120/65, her pulse oximetry is 100. HEENT: Normocephalic, atraumatic. NECK: Supple. Trachea is midline. There is no thyromegaly or adenopathy. CHEST: Clear to auscultation in all areas. HEART: Has a slightly tachycardic rate with no significant murmur. ABDOMEN: Soft and nontender. There is no hepatosplenomegaly or other masses. PELVIC: The right vulva is very mildly swollen. It is very mildly tender at the most. I do not believe there is an abscess there. It is more in the upper area than down by the [place] gland. There is no swelling in the [place] gland at all. Bimanual reveals no cervical motion tenderness. The uterus is not palpable. Adnexa are not palpable. There is no tenderness in this area at all. EXTREMITIES: There is no clubbing, cyanosis, or edema. LABORATORY WORKUP: Reveals a white count of 21.2, hemoglobin 13.2, hematocrit is 39. She had a left shift with 79.9 neutrophils. Her potassium is low at 3.1. Random glucose is 108. Liver functions are normal. Her total protein is up at 8.3. Her urinalysis reveals a specific gravity of 1.028. She got a little bit of protein in her urine and this culture is not indicated. Her chest x-ray is negative. Abdominal pelvic CT is essentially negative. ASSESSMENT AND PLAN: 1. Fever of unknown origin. Her temperature and her white count are definitely not from this little area and the right vulva is very mildly tender and very mildly swollen. We can imagine that this is the cause of that. 2. Dehydration. I will go ahead and hydrate her with some IV fluids overnight. 3. Hypokalemia. I will supplement her with 20 mEq of potassium overnight and we will check her SMA-7 in the morning. I do not know where this fever is coming from or the white count. I will have infectious disease see her. I decided to admit her since I was called down for a consultation, although I am not sure how to work up a fever of unknown origin. I will get infectious disease to help me in this area. In the meantime, I will give her some Zosyn IV. R. Willis Cunningham MD RJV/beatriz , 12:54 AM , 01:07 AM
[2018-05-15 08:11] LABS: Baso # (Auto) 0.1 th/mm3 (0.0-0.2); Baso % (Auto) 0.3 % (0.0-2.0); Eos # (Auto) 0.1 th/mm3 (0.0-0.4); Eos % (Auto) 0.3 % (0.0-4.0); Hematocrit 34.9 % (35.0-46.0); Hemoglobin 11.5 gm/dL (11.6-15.3); Lymph # (Auto) 2.1 th/mm3 (1.0-4.8); Lymph % (Auto) 10.2 % (9.0-44.0); Mean Corpuscular Hemoglobin 29.1 pg (27.0-34.0); Mean Corpuscular Volume 88.2 fL (80.0-100.0); Mean Platelet Volume 9.7 fL (7.0-11.0); Mono # (Auto) 1.7 th/mm3 (0.0-0.9); Neut # (Auto) 16.8 th/mm3 (1.8-7.7); Neut % (Auto) 81.2 % (16.0-70.0); Platelet Count 196 th/mm3 (150-450); Red Blood Count 3.95 mil/mm3 (4.00-5.30); Red Cell Distribution Width 13.3 % (11.6-17.2); White Blood Count 20.7 th/mm3 (4.0-11.0)
[2018-05-15] MEDS: Fluconazole 100 MG Tablet PO SCH (08:27)
[2018-05-15 08:44] LABS: Calcium 8.5 mg/dL (8.5-10.1); Carbon Dioxide 21.1 meq/L (21.0-32.0); Potassium 3.3 meq/L (3.5-5.1)
[2018-05-15] MEDS ORDERED: Pharmacy Ordered Lab Info OTHER ONE (08:45)
--- NOTE | 2018-05-15 13:25 | P.PNID ---
Subjective Remarks: Ms. Mccann is a 17-year-old -[place] female with no significant past medical history. Patient was admitted for evaluation of fever of unknown origin. Patient reports that approximately 2-3 days prior to admission she ate at a [employer] and 24 hours after that she started having nausea vomiting. Patient reports that she also stayed at a local hotel/resort and used their toiletries. Patient also reports having shaved in that area during the same time and reports she had tenderness in the right vulvar region. She reports white discharge per vaginally off and on. Patient continues to have fever during hospitalization and has an elevated white count as well suggestive of sepsis. Workup has been initiated and cultures are no growth so far. Dr. Cunningham of gynecology has been following the patient and reports that patient has not had any have any evidence of pelvic inflammatory disease in this admission. A UA was done which is negative. We will check GC and chlamydia as well as RPR. Infectious diseases consulted for evaluation and management of fever of unknown origin. Pertinent positives and negatives for evaluation of fever of unknown origin No rash No joint pains No recent travel No recent experimentation with other routes of sex such as oral anal. Patient denies any perirectal discomfort. Overnight events reviewed. No fevers WBC still at 20 K. No diarrhea, no BM since last 2 days. Reports inability to eat due to nausea, has ketones in the urine, Cr increased. Denies any heartburn. Her epigastric pain or anything suggestive of reflux esophagitis. Patient is on Motrin as well as Lortab off and on. As needed. Antibiotics: Bactrim Diflucan Lines: Line sites okay. Past Medical History: Reviewed. Allergies/Adverse Reactions: Allergies No Known Allergies Allergy (Verified 05/12/18 18:32) Objective Vital Signs 05/14/18 16:00 05/14/18 20:50 05/15/18 00:15 Temperature 98.5 F 97.8 F Pulse Rate 95 H 94 H 98 H Respiratory Rate 17 18 Blood Pressure 107/65 103/57 L Pulse Oximetry 97 96 05/15/18 00:41 05/15/18 04:55 05/15/18 08:00 Temperature 98.1 F 98.1 F 98.4 F Pulse Rate 97 H 105 H 89 Respiratory Rate 18 18 18 Blood Pressure 102/59 L 106/59 L 116/57 L Pulse Oximetry 96 96 97 05/15/18 12:00 Temperature 98.5 F Pulse Rate 87 Respiratory Rate 19 Blood Pressure 111/57 L Pulse Oximetry 96 Intake & Output 05/14/18 05/15/18 05/15/18 18:59 06:59 18:59 Intake Total 2807.5 / 2807.5 1300 / 1300 1005 / 1005 Output Total 880 / 880 Balance 2807.5 / 2807.5 420 / 420 1005 / 1005 Weight 48.3 kg 49 kg Intake: IV 1847.5 / 1847.5 520 / 520 1005 / 1005 KCl Inj 10 MEQ In 1/2 Normal 1490 / 1490 520 / 520 1005 / 1005 Saline Inj 1,000 ML @ 100 mls/ hr IV.CONT .Q10H3M [facility] Rx#: [id number] Zosyn 4.5 GM Premix 4.5 gm In 100 / 100 100 ml @ 100 mls/hr IV.SIG Q8H [facility] Rx#:[id number] Vancomycin Inj 750 MG In NS Inj 257.5 / 257.5 250 ML @ 250 mls/hr IV.SIG Q12H [facility] Rx#:[id number] Oral 960 / 960 780 / 780 Output: Urine 880 / 880 Other: # Voids 5 05/12/18 20:02 Blood - Peripheral Aerobic Blood Culture - Preliminary No growth in 3 days 05/12/18 20:02 Blood - Peripheral Anaerobic Blood Culture - Preliminary No growth in 3 days 05/12/18 20:02 Blood - Peripheral Aerobic Blood Culture - Preliminary No growth in 3 days 05/12/18 20:02 Blood - Peripheral Anaerobic Blood Culture - Preliminary No growth in 3 days Lab - Hematology Results 05/15/18 07:10 WBC 20.7 H RBC 3.95 L Hgb 11.5 L Hct 34.9 L MCV 88.2 MCH 29.1 MCHC 33.0 RDW 13.3 Plt Count 196 MPV 9.7 Neut % (Auto) 81.2 H Lymph % (Auto) 10.2 [place] % (Auto) 8.0 Eos % (Auto) 0.3 Baso % (Auto) 0.3 Neut # (Auto) 16.8 H Lymph # (Auto) 2.1 [place] # (Auto) 1.7 H Eos # (Auto) 0.1 Baso # (Auto) 0.1 WBC Differential . Differential Comment Auto diff final Lab - Chemistry Results 05/15/18 07:10 Sodium 142 Potassium 3.3 L Chloride 108 H Carbon Dioxide 21.1 Anion Gap 13 BUN 5 L Creatinine 1.06 H Estimated GFR 81 L Random Glucose 77 Calcium 8.5 D Imaging: ITS Impressions Abdomen/Pelvis CT 05/12/18 20:01 CONCLUSION: 1. 3.1 x 2.1 cm cystic structure in the right adnexa characteristic of an ovarian cyst. 2. Study is otherwise unremarkable. Chest X-Ray 05/12/18 20:01 CONCLUSION: No acute cardiopulmonary disease. Physical Exam: GENERAL: Well-nourished well-developed, not in acute distress SKIN: Cool and dry, no generalized rash HEAD: Atraumatic. Normocephalic. No temporal or scalp tenderness. EYES: Pupils equal round and reactive. Scleral icterus. No injection or drainage. No petechia ENT: Nothing abnormal detected NECK: Trachea midline. Supple, nontender, no meningeal signs. CARDIOVASCULAR: HS audible. RESPIRATORY: Clear to auscultation bilaterally. GASTROINTESTINAL: Abdomen soft nontender. MUSCULOSKELETAL: Extremities without clubbing, cyanosis. NEUROLOGICAL: Alert oriented 3. Nonfocal. COMPUTER ASSISTANT exam right labial fold with much reduced induration, reduced tenderness. Close to the buttock area still some tenderness. Refused Rectal exam. Denies any rectal symptoms. Psych cooperative IV line sites ok. Assessment and Plan - Plan Sepsis present on admission Fever of unknown origin likely source appears to be the vulvar abscess/ cellulitis Vulvar abscess/cellulitis Leukocytosis Recommendations: DC oral Bactrim DS since Cr increased after it started. DC Vanco IV y. Start Ceftriaxone IV Start Flagyl IV Start Oral Zyvox. Hydration and electrolyte correction per Dw : GI consult to address nausea vomiting persistent. Continue Diflucan as patient is complained of white discharge can possible fungal element Continue Sitz baths as it seems to have helped soften the area of induration. Follow cultures Follow clinically Case discussed with patient and RN. patient examined in presence of RN.
[2018-05-15] MEDS: Linezolid 600 MG Tablet PO SCH ×2 (13:39→21:23)
--- NOTE | 2018-05-15 17:10 | P.CONGI ---
History of Present Illness Consult date: 05/15/18 Chief complaint: fever of unknown origin, leukocytosis, labial History of Present Illness: This is 17-year-old AA female with out significant past medical history who presented to the ED with swelling in the right vulvar for the past few days and was admitted for sepsis. States that approximately 2-3 days prior to admission she ate at a [employer] and 24 hours later, she started having nausea vomiting, also Patient reports that she also stayed at a local hotel and shaved in that area during the same time and reports she had tenderness in the right vulvar region. So far no origin found for fever or sepsis. Blood cultures with no growth so far. Dr. Cunningham of gynecology has been following the patient with no evidence of PID. A UA was done which is negative. ID following, no source found so far, she is on broad spectrum of abx, GC and chlamydia as well as RPR negative. CT of a/p showed cystic structure in the right adnexa, other bryant unremarkable. Pt states the emesis is yellow acid. She hasn't been able to move her bowels since admission, she feels like she had to go but only gas comes out. Denies previous hx of GI issues. No family hx of colitis or Crohn. <Shayne Espinoza - Last Filed: 05/15/18 17:16> Review of Systems All other systems reviewed negative except as stated in HPI <Shayne Espinoza - Last Filed: 05/15/18 17:16> PMFSH - History History Provided By: Patient - Medical History Medical History: Medical History (Last Reviewed 05/12/18 @ 20:09 by Zackery Aaron DO) Patient denies medical problems - Surgical History Surgical History: Surgical History (Last Reviewed 05/12/18 @ 20:09 by Zackery Aaron DO) No history of previous surgery - Tobacco History Second Hand Smoke Exposure: No Tobacco Use In Past 30 Days: No Smoking Status: Never smoker - Alcohol History How Often Do You Have a Drink Containing Alcohol: Never - Substance Use History Substance History: No History of Abuse - Travel History Recent Travel in the [place] Within the Last 8 Weeks: No Recent Travel Out of the Country Within the Last 8 Weeks: No - Immunization History Tetanus Immunization: >5 Years Hx Influenza Vaccine This Season: No <Shayne Espinoza - Last Filed: 05/15/18 17:16> - Medical History Medical History: Medical History (Last Reviewed 05/12/18 @ 20:09 by Zackery Aaron DO) Patient denies medical problems - Surgical History Surgical History: Surgical History (Last Reviewed 05/12/18 @ 20:09 by Zackery Aaron DO) No history of previous surgery <Luigi Hewitt - Last Filed: 05/15/18 20:41> Medications and Allergies Active Medications: Active Medications Famotidine (Pepcid) 20 mg PO HS [facility] Last Admin: 05/14/18 22:26 Dose: Not Given Fluconazole (Diflucan) 100 mg PO DAILY [facility] Last Admin: 05/15/18 08:27 Dose: 100 mg Sodium Chloride (Ns Inj) 1,000 mls @ 0 mls/hr IV.SIG .Q0M [facility] Last Infusion: 05/13/18 05:56 Dose: Infused Sodium Chloride (Ns Inj) 800 mls @ 0 mls/hr IV.SIG .Q0M [facility] Last Infusion: 05/13/18 05:57 Dose: Infused Potassium Chloride 10 meq/ (Sodium Chloride) 1,005 mls @ 100 mls/hr IV.CONT .Q10H3M [facility] Last Admin: 05/15/18 13:01 Dose: 100 mls/hr Metronidazole/Sodium Chloride (Flagyl 500 Mg Inj) 100 mls @ 100 mls/hr IV.SIG Q8H [facility] Last Admin: 05/15/18 14:15 Dose: 100 mls/hr Ceftriaxone Sodium 2,000 mg/ (Sodium Chloride) 100 mls @ 200 mls/hr IV.SIG Q24H [facility] Last Infusion: 05/15/18 14:34 Dose: Infused Linezolid (Zyvox) 600 mg PO Q12HR [facility] Last Admin: 05/15/18 13:39 Dose: 600 mg Nystatin (Mycostatin Cream) 1 applicatio TOPICAL QID [facility] Last Admin: 05/15/18 13:02 Dose: 1 applicatio Ondansetron HCl (Zofran Inj) 4 mg IV.PUSH Q4H PRN PRN Reason: NAUSEA Last Admin: 05/15/18 14:32 Dose: 4 mg Zolpidem Tartrate (Ambien) 5 mg PO HS PRN PRN Reason: INSOMNIA <Shayne Espinoza - Last Filed: 05/15/18 17:16> Active Medications: Active Medications Famotidine (Pepcid) 20 mg PO HS [facility] Last Admin: 05/14/18 22:26 Dose: Not Given Fluconazole (Diflucan) 100 mg PO DAILY [facility] Last Admin: 05/15/18 08:27 Dose: 100 mg Sodium Chloride (Ns Inj) 1,000 mls @ 0 mls/hr IV.SIG .Q0M [facility] Last Infusion: 05/13/18 05:56 Dose: Infused Sodium Chloride (Ns Inj) 800 mls @ 0 mls/hr IV.SIG .Q0M [facility] Last Infusion: 05/13/18 05:57 Dose: Infused Potassium Chloride 10 meq/ (Sodium Chloride) 1,005 mls @ 100 mls/hr IV.CONT .Q10H3M [facility] Last Admin: 05/15/18 13:01 Dose: 100 mls/hr Metronidazole/Sodium Chloride (Flagyl 500 Mg Inj) 100 mls @ 100 mls/hr IV.SIG Q8H [facility] Last Infusion: 05/15/18 18:09 Dose: Infused Ceftriaxone Sodium 2,000 mg/ (Sodium Chloride) 100 mls @ 200 mls/hr IV.SIG Q24H [facility] Last Infusion: 05/15/18 14:34 Dose: Infused Linezolid (Zyvox) 600 mg PO Q12HR [facility] Last Admin: 05/15/18 13:39 Dose: 600 mg Nystatin (Mycostatin Cream) 1 applicatio TOPICAL QID [facility] Last Admin: 05/15/18 18:06 Dose: Not Given Ondansetron HCl (Zofran Inj) 4 mg IV.PUSH Q4H PRN PRN Reason: NAUSEA Last Admin: 05/15/18 14:32 Dose: 4 mg Zolpidem Tartrate (Ambien) 5 mg PO HS PRN PRN Reason: INSOMNIA <Luigi Hewitt - Last Filed: 05/15/18 20:41> Allergies Allergy/AdvReac Type Severity Reaction Status Date / Time No Known Allergies Allergy Verified 05/12/18 18:32 Home Medications Medication Instructions Recorded Confirmed Type No Known Home Medications 05/12/18 05/12/18 History Exam Vital signs: Vital Signs 05/14/18 20:50 05/15/18 00:15 05/15/18 00:41 Temperature 97.8 F 98.1 F Pulse Rate 94 H 98 H 97 H Respiratory Rate 18 18 Blood Pressure 103/57 L 102/59 L Pulse Oximetry 96 96 05/15/18 04:55 05/15/18 08:00 05/15/18 12:00 Temperature 98.1 F 98.4 F 98.5 F Pulse Rate 105 H 89 87 Respiratory Rate 18 18 19 Blood Pressure 106/59 L 116/57 L 111/57 L Pulse Oximetry 96 97 96 Intake & Output 05/14/18 05/15/18 05/15/18 18:59 06:59 18:59 Intake Total 2807.5 / 2807.5 1300 / 1300 1105 / 1105 Output Total 880 / 880 Balance 2807.5 / 2807.5 420 / 420 1105 / 1105 Weight 48.3 kg 49 kg Intake: IV 1847.5 / 1847.5 520 / 520 1105 / 1105 KCl Inj 10 MEQ In 1/2 Normal 1490 / 1490 520 / 520 1005 / 1005 Saline Inj 1,000 ML @ 100 mls/ hr IV.CONT .Q10H3M [facility] Rx#: [id number] Zosyn 4.5 GM Premix 4.5 gm In 100 / 100 100 ml @ 100 mls/hr IV.SIG Q8H [facility] Rx#:[id number] Vancomycin Inj 750 MG In NS Inj 257.5 / 257.5 250 ML @ 250 mls/hr IV.SIG Q12H [facility] Rx#:[id number] Rocephin Inj 2,000 MG In NS Inj 100 / 100 100 ML @ 200 mls/hr IV.SIG Q24H [facility] Rx#:[id number] Oral 960 / 960 780 / 780 Output: Urine 880 / 880 Other: # Voids 5 - Constitutional no acute distress - Routine HEENT Exam Head: Present: normocephalic - Routine Respiratory Exam Present: CTA bilaterally - Routine Cardiovascular Exam Present: RRR - Routine Abdominal Exam Present: soft, normoactive bowel sounds. Absent: tenderness, distended - Routine Extremities Exam Absent: cyanosis, clubbing - Routine Skin Exam Present: intact, cyanosis - Routine Neurological Exam Present: alert, oriented X3 <Amawi,Khawla - Last Filed: 05/15/18 17:16> Vital signs: Vital Signs 05/14/18 20:50 05/15/18 00:15 05/15/18 00:41 Temperature 97.8 F 98.1 F Pulse Rate 94 H 98 H 97 H Respiratory Rate 18 18 Blood Pressure 103/57 L 102/59 L Pulse Oximetry 96 96 05/15/18 04:55 05/15/18 08:00 05/15/18 12:00 Temperature 98.1 F 98.4 F 98.5 F Pulse Rate 105 H 89 87 Respiratory Rate 18 18 19 Blood Pressure 106/59 L 116/57 L 111/57 L Pulse Oximetry 96 97 96 05/15/18 16:00 Temperature 97.8 F Pulse Rate 107 H Respiratory Rate 19 Blood Pressure 115/59 L Pulse Oximetry 96 Intake & Output 05/15/18 05/15/18 05/16/18 06:59 18:59 06:59 Intake Total 1300 / 1300 2405 / 2405 Output Total 880 / 880 Balance 420 / 420 2405 / 2405 Weight 49 kg Intake: IV 520 / 520 1205 / 1205 KCl Inj 10 MEQ In 1/2 Normal 520 / 520 1005 / 1005 Saline Inj 1,000 ML @ 100 mls/ hr IV.CONT .Q10H3M [facility] Rx#: [id number] Rocephin Inj 2,000 MG In NS Inj 100 / 100 100 ML @ 200 mls/hr IV.SIG Q24H [facility] Rx#:[id number] Flagyl 500 MG Inj 100 ML @ 100 100 / 100 mls/hr IV.SIG Q8H [facility] Rx#: [id number] Oral 780 / 780 1200 / 1200 Output: Urine 880 / 880 Other: # Voids 4 <Luigi Hewitt - Last Filed: 05/15/18 20:41> Results - Labs CBC & Chem 7: 05/15/18 07:10 05/15/18 07:10 Labs: Laboratory Results - last 24 hr 05/14/18 05/15/18 05/15/18 07:53 03:00 07:10 WBC 20.7 H RBC 3.95 L Hgb 11.5 L Hct 34.9 L MCV 88.2 MCH 29.1 MCHC 33.0 RDW 13.3 Plt Count 196 MPV 9.7 Neut % (Auto) 81.2 H Lymph % (Auto) 10.2 [place] % (Auto) 8.0 Eos % (Auto) 0.3 Baso % (Auto) 0.3 Neut # (Auto) 16.8 H Lymph # (Auto) 2.1 [place] # (Auto) 1.7 H Eos # (Auto) 0.1 Baso # (Auto) 0.1 WBC Differential . Differential Comment Auto diff final Sodium Potassium Chloride Carbon Dioxide Anion Gap BUN Creatinine Estimated GFR Random Glucose Calcium Urine Color Straw Urine Clarity Clear Urine pH 6.0 Ur Specific [place] 1.006 Urine Protein Negative Urine Glucose (UA) Negative Urine Ketones 80 or greater Urine Occult Blood Negative Urine Nitrate Negative Urine Bilirubin Negative Urine Urobilinogen Less than 2 Ur Leukocyte Esterase Negative Urine RBC 1 Urine WBC 1 Ur Squamous Epith Cells 1 Hyaline Casts 1 Urine Mucus Few H Micro UA Comment Culture not ind Urine Culture Comments Culture not ind RPR Nonreactive 05/15/18 07:10 WBC RBC Hgb Hct MCV MCH MCHC RDW Plt Count MPV Neut % (Auto) Lymph % (Auto) [place] % (Auto) Eos % (Auto) Baso % (Auto) Neut # (Auto) Lymph # (Auto) [place] # (Auto) Eos # (Auto) Baso # (Auto) WBC Differential Differential Comment Sodium 142 Potassium 3.3 L Chloride 108 H Carbon Dioxide 21.1 Anion Gap 13 BUN 5 L Creatinine 1.06 H Estimated GFR 81 L Random Glucose 77 Calcium 8.5 D Urine Color Urine Clarity Urine pH Ur Specific [place] Urine Protein Urine Glucose (UA) Urine Ketones Urine Occult Blood Urine Nitrate Urine Bilirubin Urine Urobilinogen Ur Leukocyte Esterase Urine RBC Urine WBC Ur Squamous Epith Cells Hyaline Casts Urine Mucus Micro UA Comment Urine Culture Comments RPR <Shayne Espinoza - Last Filed: 05/15/18 17:16> - Labs CBC & Chem 7: 05/15/18 07:10 05/15/18 07:10 Labs: Laboratory Results - last 24 hr 05/14/18 05/15/18 05/15/18 07:53 03:00 07:10 WBC 20.7 H RBC 3.95 L Hgb 11.5 L Hct 34.9 L MCV 88.2 MCH 29.1 MCHC 33.0 RDW 13.3 Plt Count 196 MPV 9.7 Neut % (Auto) 81.2 H Lymph % (Auto) 10.2 [place] % (Auto) 8.0 Eos % (Auto) 0.3 Baso % (Auto) 0.3 Neut # (Auto) 16.8 H Lymph # (Auto) 2.1 [place] # (Auto) 1.7 H Eos # (Auto) 0.1 Baso # (Auto) 0.1 WBC Differential . Differential Comment Auto diff final Sodium Potassium Chloride Carbon Dioxide Anion Gap BUN Creatinine Estimated GFR Random Glucose Calcium Urine Color Straw Urine Clarity Clear Urine pH 6.0 Ur Specific [place] 1.006 Urine Protein Negative Urine Glucose (UA) Negative Urine Ketones 80 or greater Urine Occult Blood Negative Urine Nitrate Negative Urine Bilirubin Negative Urine Urobilinogen Less than 2 Ur Leukocyte Esterase Negative Urine RBC 1 Urine WBC 1 Ur Squamous Epith Cells 1 Hyaline Casts 1 Urine Mucus Few H Micro UA Comment Culture not ind Urine Culture Comments Culture not ind Urine Eosinophils RPR Nonreactive 05/15/18 05/15/18 07:10 16:06 WBC RBC Hgb Hct MCV MCH MCHC RDW Plt Count MPV Neut % (Auto) Lymph % (Auto) [place] % (Auto) Eos % (Auto) Baso % (Auto) Neut # (Auto) Lymph # (Auto) [place] # (Auto) Eos # (Auto) Baso # (Auto) WBC Differential Differential Comment Sodium 142 Potassium 3.3 L Chloride 108 H Carbon Dioxide 21.1 Anion Gap 13 BUN 5 L Creatinine 1.06 H Estimated GFR 81 L Random Glucose 77 Calcium 8.5 D Urine Color Urine Clarity Urine pH Ur Specific [place] Urine Protein Urine Glucose (UA) Urine Ketones Urine Occult Blood Urine Nitrate Urine Bilirubin Urine Urobilinogen Ur Leukocyte Esterase Urine RBC Urine WBC Ur Squamous Epith Cells Hyaline Casts Urine Mucus Micro UA Comment Urine Culture Comments Urine Eosinophils None seen RPR <Luigi Hewitt E - Last Filed: 05/15/18 20:41> Assessment and Plan - Plan - Leucocytosis, fever of unknown origin, with N/V, inability to tolerate PO intake for few days. LFTs wnl. States that approximately 2-3 days prior to admission she ate at a [employer] and 24 hours later, she started having nausea vomiting, also Patient reports that she also stayed at a local hotel and shaved in that area during the same time and reports she had tenderness in the right vulvar region. So far no origin found for fever or sepsis. Blood cultures with no growth so far. Dr. Cunningham of gynecology has been following the patient with no evidence of PID. A UA was done which is negative. ID following, no source found so far, she is on broad spectrum of abx, GC and chlamydia as well as RPR negative. CT of a/p showed cystic structure in the right adnexa, other bryant unremarkable. Pt states the emesis is yellow acid. She hasn't been able to move her bowels since admission, she feels like she had to go but only gas comes out. Denies previous hx of GI issues. No family hx of colitis or Crohn - swelling in the right vulvar for the past few days- spindle carver on the case, all work up negative so far Plan: - Regular diet - EGD/colonoscopy when pt discuss with family - Sed rate, C-rp, lipase - Supportive care - ID, spindle carver on the case - Pt seen and examined by Dr. Hewitt and myself and this note is written on his behalf <Shayne Espinoza - Last Filed: 05/15/18 17:16> - Attending Attestation Patient seen and examined Agree with above Unclear etiology for leukocytosis and fever Nausea and vomiting appears to be limited at this point but we can pursue an upper endoscopy and possibly even a colonoscopy to further evaluate Patient will discuss above option with parents In the meanwhile continue with current supportive care <Luigi Hewitt - Last Filed: 05/15/18 20:41>
--- NOTE | 2018-05-15 18:07 | P.PN ---
Subjective Interval history: Doing ok, Still unable to eat and still having nausea. Vulvar area is better. Physical Exam Vital signs: Vital Signs 05/14/18 20:50 05/15/18 00:15 05/15/18 00:41 Temperature 97.8 F 98.1 F Pulse Rate 94 H 98 H 97 H Respiratory Rate 18 18 Blood Pressure 103/57 L 102/59 L Pulse Oximetry 96 96 05/15/18 04:55 05/15/18 08:00 05/15/18 12:00 Temperature 98.1 F 98.4 F 98.5 F Pulse Rate 105 H 89 87 Respiratory Rate 18 18 19 Blood Pressure 106/59 L 116/57 L 111/57 L Pulse Oximetry 96 97 96 05/15/18 16:00 Temperature 97.8 F Pulse Rate 107 H Respiratory Rate 19 Blood Pressure 115/59 L Pulse Oximetry 96 Intake & Output 05/14/18 05/15/18 05/15/18 18:59 06:59 18:59 Intake Total 2807.5 / 2807.5 1300 / 1300 1105 / 1105 Output Total 880 / 880 Balance 2807.5 / 2807.5 420 / 420 1105 / 1105 Weight 48.3 kg 49 kg Intake: IV 1847.5 / 1847.5 520 / 520 1105 / 1105 KCl Inj 10 MEQ In 1/2 Normal 1490 / 1490 520 / 520 1005 / 1005 Saline Inj 1,000 ML @ 100 mls/ hr IV.CONT .Q10H3M [facility] Rx#: [id number] Zosyn 4.5 GM Premix 4.5 gm In 100 / 100 100 ml @ 100 mls/hr IV.SIG Q8H [facility] Rx#:[id number] Vancomycin Inj 750 MG In NS Inj 257.5 / 257.5 250 ML @ 250 mls/hr IV.SIG Q12H [facility] Rx#:[id number] Rocephin Inj 2,000 MG In NS Inj 100 / 100 100 ML @ 200 mls/hr IV.SIG Q24H [facility] Rx#:[id number] Oral 960 / 960 780 / 780 Output: Urine 880 / 880 Other: # Voids 5 - Constitutional no acute distress - Routine HEENT Exam Head: Present: normocephalic - Routine Neck Exam Present: supple - Routine Respiratory Exam Present: CTA bilaterally - Routine Cardiovascular Exam Present: RRR - Routine Abdominal Exam Present: soft, normoactive bowel sounds Results - Labs CBC & Chem 7: 05/15/18 07:10 05/15/18 07:10 Laboratory Results - last 24 hr 05/14/18 05/15/18 05/15/18 07:53 03:00 07:10 WBC 20.7 H RBC 3.95 L Hgb 11.5 L Hct 34.9 L MCV 88.2 MCH 29.1 MCHC 33.0 RDW 13.3 Plt Count 196 MPV 9.7 Neut % (Auto) 81.2 H Lymph % (Auto) 10.2 [place] % (Auto) 8.0 Eos % (Auto) 0.3 Baso % (Auto) 0.3 Neut # (Auto) 16.8 H Lymph # (Auto) 2.1 [place] # (Auto) 1.7 H Eos # (Auto) 0.1 Baso # (Auto) 0.1 WBC Differential . Differential Comment Auto diff final Sodium Potassium Chloride Carbon Dioxide Anion Gap BUN Creatinine Estimated GFR Random Glucose Calcium Urine Color Straw Urine Clarity Clear Urine pH 6.0 Ur Specific [place] 1.006 Urine Protein Negative Urine Glucose (UA) Negative Urine Ketones 80 or greater Urine Occult Blood Negative Urine Nitrate Negative Urine Bilirubin Negative Urine Urobilinogen Less than 2 Ur Leukocyte Esterase Negative Urine RBC 1 Urine WBC 1 Ur Squamous Epith Cells 1 Hyaline Casts 1 Urine Mucus Few H Micro UA Comment Culture not ind Urine Culture Comments Culture not ind RPR Nonreactive 05/15/18 07:10 WBC RBC Hgb Hct MCV MCH MCHC RDW Plt Count MPV Neut % (Auto) Lymph % (Auto) [place] % (Auto) Eos % (Auto) Baso % (Auto) Neut # (Auto) Lymph # (Auto) [place] # (Auto) Eos # (Auto) Baso # (Auto) WBC Differential Differential Comment Sodium 142 Potassium 3.3 L Chloride 108 H Carbon Dioxide 21.1 Anion Gap 13 BUN 5 L Creatinine 1.06 H Estimated GFR 81 L Random Glucose 77 Calcium 8.5 D Urine Color Urine Clarity Urine pH Ur Specific [place] Urine Protein Urine Glucose (UA) Urine Ketones Urine Occult Blood Urine Nitrate Urine Bilirubin Urine Urobilinogen Ur Leukocyte Esterase Urine RBC Urine WBC Ur Squamous Epith Cells Hyaline Casts Urine Mucus Micro UA Comment Urine Culture Comments RPR Microbiology 08/17/18 20:02 Blood - Peripheral Aerobic Blood Culture - Preliminary No growth in 3 days 05/12/18 20:02 Blood - Peripheral Anaerobic Blood Culture - Preliminary No growth in 3 days 05/12/18 20:02 Blood - Peripheral Aerobic Blood Culture - Preliminary No growth in 3 days 05/12/18 20:02 Blood - Peripheral Anaerobic Blood Culture - Preliminary No growth in 3 days Assessment and Plan - Plan HD #4 FUO W/U is negative so far. CXs and ct and GC are all negative. Fever is resolving nicely on the antibiotics. RPR is negative Still has significant leukocytosis with a left shift. Hypokalemia. Will check a magnesium level and increase the K in the IVF. Nausea and vomiting checking with GI and follow up soon. Ketonuria will increase fluids and check in a couple days
[2018-05-15] MEDS: Famotidine 20 MG Tablet PO SCH (21:23)
[2018-05-15 22:35] LABS: Albumin 3.1 g/dL (3.4-5.0); Amylase 58 U/L (25-115); Anion Gap 12 meq/L (5-15); Aspartate Aminotransferase 15 U/L (16-38); Blood Urea Nitrogen 5 mg/dL (7-18); Calcium 8.5 mg/dL (8.5-10.1); Carbon Dioxide 23.1 meq/L (21.0-32.0); Chloride 107 meq/L (98-107); Glomerular Filtration Rate 74 mL/min (>89); Glucose,Random 83 mg/dL (74-106); Lipase 124 U/L (73-393); Potassium 3.2 meq/L (3.5-5.1); Sodium 142 meq/L (136-145)
[2018-05-15 22:41] LABS: Alanine Aminotransferase 11 U/L (9-42); Alkaline Phosphatase 103 U/L (45-117); Total Protein 7.4 g/dL (6.4-8.2)
[2018-05-16] MEDS: Potassium Chloride Inj 10 MEQ in Sodium Chloride 0.45 % Inj 1,000 ML IV.CONT SCH ×3 (00:17→23:27)
[2018-05-16 06:16] LABS: Baso % (Auto) 0.2 % (0.0-2.0); Eos # (Auto) 0.1 th/mm3 (0.0-0.4); Eos % (Auto) 0.5 % (0.0-4.0); Hematocrit 33.2 % (35.0-46.0); Hemoglobin 11.2 gm/dL (11.6-15.3); Lymph # (Auto) 1.7 th/mm3 (1.0-4.8); Mean Corpuscular HGB Conc 33.7 % (32.0-36.0); Mean Corpuscular Hemoglobin 29.5 pg (27.0-34.0); Mean Corpuscular Volume 87.5 fL (80.0-100.0); Mean Platelet Volume 9.7 fL (7.0-11.0); Mono # (Auto) 1.3 th/mm3 (0.0-0.9); Neut # (Auto) 13.6 th/mm3 (1.8-7.7); Neut % (Auto) 81.3 % (16.0-70.0); Platelet Count 200 th/mm3 (150-450); Red Cell Distribution Width 13.5 % (11.6-17.2); White Blood Count 16.8 th/mm3 (4.0-11.0)
[2018-05-16] MEDS: Fluconazole 100 MG Tablet PO SCH (08:08)
[2018-05-16] MEDS: Linezolid 600 MG Tablet PO SCH ×2 (08:08→23:28)
--- NOTE | 2018-05-16 10:47 | P.PNID ---
Subjective Remarks: Ms. Mccann is a 17-year-old -[place] female with no significant past medical history. Patient was admitted for evaluation of fever of unknown origin. Patient reports that approximately 2-3 days prior to admission she ate at a [employer] and 24 hours after that she started having nausea vomiting. Patient reports that she also stayed at a local hotel/resort and used their toiletries. Patient also reports having shaved in that area during the same time and reports she had tenderness in the right vulvar region. She reports white discharge per vaginally off and on. Patient continues to have fever during hospitalization and has an elevated white count as well suggestive of sepsis. Workup has been initiated and cultures are no growth so far. Dr. Cunningham of gynecology has been following the patient and reports that patient has not had any have any evidence of pelvic inflammatory disease in this admission. A UA was done which is negative. We will check GC and chlamydia as well as RPR. Infectious diseases consulted for evaluation and management of fever of unknown origin. Pertinent positives and negatives for evaluation of fever of unknown origin No rash No joint pains No recent travel No recent experimentation with other routes of sex such as oral anal. Patient denies any perirectal discomfort. Overnight events reviewed. No fevers Reports she has her periods now. WBC improved to 16 now. Patient still reports nausea. RN informs me she was stashing her antibiotics. She was then offered applesauce and unsure if she was taking those either per RN. She reports nausea vomiting before even coming to the hospital I doubt this is primarily due to antibiotics or pain meds. Possible Gastritis prior to arrival and worsened after Lortab and Motrin. Reports having a small BM today but does not feel completely relieved. Denies any heartburn or epigastric pain or anything suggestive of reflux esophagitis. Agreeable to EGD she dw her Mom. Wants to talk to GI and consent to proceed with procedure. Antibiotics: Ceftriaxone IV Diflucan Zyvox Lines: Line sites okay. Past Medical History: Reviewed. Allergies/Adverse Reactions: Allergies No Known Allergies Allergy (Verified 05/12/18 18:32) Objective Vital Signs 05/15/18 12:00 05/15/18 16:00 05/15/18 20:00 Temperature 98.5 F 97.8 F 98.1 F Pulse Rate 87 107 H 98 H Respiratory Rate 19 19 18 Blood Pressure 111/57 L 115/59 L 118/67 Pulse Oximetry 96 96 97 05/16/18 00:00 05/16/18 04:00 05/16/18 07:55 Temperature 98.2 F 98.4 F 97.8 F Pulse Rate 87 89 91 H Respiratory Rate 18 Blood Pressure 108/58 L 110/62 101/57 L Pulse Oximetry 100 100 99 Intake & Output 05/15/18 05/16/18 05/16/18 18:59 06:59 18:59 Intake Total 2405 / 2405 1105 / 1105 100 / 100 Balance 2405 / 2405 1105 / 1105 100 / 100 Weight 48.2 kg Intake: IV 1205 / 1205 1105 / 1105 100 / 100 KCl Inj 10 MEQ In 1/2 Normal 1005 / 1005 1005 / 1005 Saline Inj 1,000 ML @ 100 mls/ hr IV.CONT .Q10H3M [facility] Rx#: [id number] Rocephin Inj 2,000 MG In NS Inj 100 / 100 100 ML @ 200 mls/hr IV.SIG Q24H [facility] Rx#:[id number] Flagyl 500 MG Inj 100 ML @ 100 100 / 100 100 / 100 100 / 100 mls/hr IV.SIG Q8H [facility] Rx#: [id number] Oral 1200 / 1200 Other: # Voids 4 3 Date of Last Bowel Movement 05/15/18 05/12/18 20:02 Blood - Peripheral Aerobic Blood Culture - Preliminary No growth in 3 days 05/12/18 20:02 Blood - Peripheral Anaerobic Blood Culture - Preliminary No growth in 3 days 05/12/18 20:02 Blood - Peripheral Aerobic Blood Culture - Preliminary No growth in 3 days 05/12/18 20:02 Blood - Peripheral Anaerobic Blood Culture - Preliminary No growth in 3 days Lab - Hematology Results 05/15/18 05/15/18 05/16/18 07:10 21:20 05:00 WBC 20.7 H 16.8 H RBC 3.95 L 3.80 L Hgb 11.5 L 11.2 L Hct 34.9 L 33.2 L MCV 88.2 87.5 MCH 29.1 29.5 MCHC 33.0 33.7 RDW 13.3 13.5 Plt Count 196 200 MPV 9.7 9.7 Neut % (Auto) 81.2 H 81.3 H Lymph % (Auto) 10.2 10.0 [place] % (Auto) 8.0 8.0 Eos % (Auto) 0.3 0.5 Baso % (Auto) 0.3 0.2 Neut # (Auto) 16.8 H 13.6 H Lymph # (Auto) 2.1 1.7 [place] # (Auto) 1.7 H 1.3 H Eos # (Auto) 0.1 0.1 Baso # (Auto) 0.1 0.0 WBC Differential . . Differential Comment Auto diff final Auto diff final ESR 57 H Lab - Chemistry Results 05/15/18 05/15/18 07:10 21:20 Sodium 142 142 Potassium 3.3 L 3.2 L Chloride 108 H 107 Carbon Dioxide 21.1 23.1 Anion Gap 13 12 BUN 5 L 5 L Creatinine 1.06 H 1.14 H Estimated GFR 81 L 74 L Random Glucose 77 83 Calcium 8.5 D 8.5 Magnesium 2.0 Total Bilirubin 0.2 AST 15 L ALT 11 Alkaline Phosphatase 103 C-Reactive Protein 15.00 H Total Protein 7.4 D Albumin 3.1 L Amylase 58 Lipase 124 Imaging: ITS Impressions Abdomen/Pelvis CT 05/12/18 20:01 CONCLUSION: 1. 3.1 x 2.1 cm cystic structure in the right adnexa characteristic of an ovarian cyst. 2. Study is otherwise unremarkable. Chest X-Ray 05/12/18 20:01 CONCLUSION: No acute cardiopulmonary disease. Physical Exam: GENERAL: Well-nourished well-developed, not in acute distress SKIN: Cool and dry, no generalized rash HEAD: Atraumatic. Normocephalic. No temporal or scalp tenderness. EYES: Pupils equal round and reactive. Scleral icterus. No injection or drainage. No petechia ENT: Nothing abnormal detected NECK: Trachea midline. Supple, nontender, no meningeal signs. CARDIOVASCULAR: HS audible. RESPIRATORY: Clear to auscultation bilaterally. GASTROINTESTINAL: Abdomen soft nontender. MUSCULOSKELETAL: Extremities without clubbing, cyanosis. NEUROLOGICAL: Alert oriented 3. Nonfocal. WIRE SPINNER exam deferred today. Psych cooperative IV line sites ok. Assessment and Plan - Plan Sepsis present on admission Fever of unknown origin likely source appears to be the vulvar abscess/ cellulitis Vulvar abscess/cellulitis Leukocytosis Recommendations: Continue Ceftriaxone IV DC Flagyl IV due to persistent nausea. Continue Zyvox for MRSA coverage, seems to have helped with decreasing WBC count. Continue Diflucan as patient is complained of white discharge can possible fungal element Hydration and electrolyte correction per Follow cultures Follow clinically Case discussed with patient and RN.
--- NOTE | 2018-05-16 15:48 | P.PNGI ---
Subjective Interval history: She is resting in the bed appears to be mildly sleeping Decreased appetite but no acute nausea or vomiting noted Denies any bowel movement since admission tolerating clear liquids <Qi Guerrero - Last Filed: 05/16/18 15:43> Physical Exam Vital signs: Vital Signs 05/15/18 16:00 05/15/18 20:00 05/16/18 00:00 Temperature 97.8 F 98.1 F 98.2 F Pulse Rate 107 H 98 H 87 Respiratory Rate 19 18 18 Blood Pressure 115/59 L 118/67 108/58 L Pulse Oximetry 96 97 100 05/16/18 04:00 05/16/18 07:55 05/16/18 12:00 Temperature 98.4 F 97.8 F 97.4 F L Pulse Rate 89 91 H 100 H Respiratory Rate 18 18 18 Blood Pressure 110/62 101/57 L 103/59 L Pulse Oximetry 100 99 96 Intake & Output 05/15/18 05/16/18 05/16/18 18:59 06:59 18:59 Intake Total 2405 / 2405 1105 / 1105 100 / 100 Balance 2405 / 2405 1105 / 1105 100 / 100 Weight 48.2 kg Intake: IV 1205 / 1205 1105 / 1105 100 / 100 KCl Inj 10 MEQ In 1/2 Normal 1005 / 1005 1005 / 1005 Saline Inj 1,000 ML @ 100 mls/ hr IV.CONT .Q10H3M [facility] Rx#: [id number] Rocephin Inj 2,000 MG In NS Inj 100 / 100 100 ML @ 200 mls/hr IV.SIG Q24H [facility] Rx#:[id number] Flagyl 500 MG Inj 100 ML @ 100 100 / 100 100 / 100 100 / 100 mls/hr IV.SIG Q8H [facility] Rx#: [id number] Oral 1200 / 1200 Other: # Voids 4 3 Date of Last Bowel Movement 05/15/18 - Constitutional mild distress, thin - Routine HEENT Exam ENT: Present: mucous membranes moist - Routine Respiratory Exam Present: accessory muscle use (Even, unlabored) - Routine Cardiovascular Exam Present: S1, S2 - Routine Abdominal Exam Present: soft, normoactive bowel sounds (Soft bowel sounds no obvious tenderness , no BM since admission) - Routine Skin Exam Present: intact <Qi Guerrero - Last Filed: 05/16/18 15:43> Vital signs: Vital Signs 05/16/18 04:00 05/16/18 07:55 05/16/18 12:00 Temperature 98.4 F 97.8 F 97.4 F L Pulse Rate 89 91 H 100 H Respiratory Rate 18 18 18 Blood Pressure 110/62 101/57 L 103/59 L Pulse Oximetry 100 99 96 05/16/18 16:00 05/16/18 20:00 Temperature 97.9 F 98.0 F Pulse Rate 98 H 106 H Respiratory Rate 18 20 Blood Pressure 116/56 L 129/62 Pulse Oximetry 98 96 Intake & Output 05/16/18 05/16/18 05/17/18 06:59 18:59 06:59 Intake Total 1105 / 1105 1400 / 1400 Balance 1105 / 1105 1400 / 1400 Weight 48.2 kg Intake: IV 1105 / 1105 300 / 300 KCl Inj 10 MEQ In 1/2 Normal 1005 / 1005 Saline Inj 1,000 ML @ 100 mls/ hr IV.CONT .Q10H3M [facility] Rx#: [id number] Rocephin Inj 2,000 MG In NS Inj 100 / 100 100 ML @ 200 mls/hr IV.SIG Q24H [facility] Rx#:[id number] Flagyl 500 MG Inj 100 ML @ 100 100 / 100 200 / 200 mls/hr IV.SIG Q8H [facility] Rx#: [id number] Oral 1100 / 1100 Other: # Voids 3 6 Date of Last Bowel Movement 05/15/18 <Luigi Hewitt - Last Filed: 05/17/18 01:08> Results - Labs CBC & Chem 7: 05/16/18 05:00 05/15/18 21:20 Laboratory Results - last 24 hr 05/15/18 05/15/18 05/15/18 16:06 21:20 21:20 WBC RBC Hgb Hct MCV MCH MCHC RDW Plt Count MPV Neut % (Auto) Lymph % (Auto) Williams % (Auto) Eos % (Auto) Baso % (Auto) Neut # (Auto) Lymph # (Auto) [place] # (Auto) Eos # (Auto) Baso # (Auto) WBC Differential Differential Comment ESR 57 H Sodium 142 Potassium 3.2 L Chloride 107 Carbon Dioxide 23.1 Anion Gap 12 BUN 5 L Creatinine 1.14 H Estimated GFR 74 L Random Glucose 83 Calcium 8.5 Magnesium 2.0 Total Bilirubin 0.2 AST 15 L ALT 11 Alkaline Phosphatase 103 C-Reactive Protein 15.00 H Total Protein 7.4 D Albumin 3.1 L Amylase 58 Lipase 124 Urine Eosinophils None seen 05/16/18 05:00 WBC 16.8 H RBC 3.80 L Hgb 11.2 L Hct 33.2 L MCV 87.5 MCH 29.5 MCHC 33.7 RDW 13.5 Plt Count 200 MPV 9.7 Neut % (Auto) 81.3 H Lymph % (Auto) 10.0 Williams % (Auto) 8.0 Eos % (Auto) 0.5 Baso % (Auto) 0.2 Neut # (Auto) 13.6 H Lymph # (Auto) 1.7 Williams # (Auto) 1.3 H Eos # (Auto) 0.1 Baso # (Auto) 0.0 WBC Differential . Differential Comment Auto diff final ESR Sodium Potassium Chloride Carbon Dioxide Anion Gap BUN Creatinine Estimated GFR Random Glucose Calcium Magnesium Total Bilirubin AST ALT Alkaline Phosphatase C-Reactive Protein Total Protein Albumin Amylase Lipase Urine Eosinophils Microbiology 05/12/18 20:02 Blood - Peripheral Aerobic Blood Culture - Preliminary No growth in 4 days 05/12/18 20:02 Blood - Peripheral Anaerobic Blood Culture - Preliminary No growth in 4 days 05/12/18 20:02 Blood - Peripheral Aerobic Blood Culture - Preliminary No growth in 4 days 05/12/18 20:02 Blood - Peripheral Anaerobic Blood Culture - Preliminary No growth in 4 days <Qi Guerrero - Last Filed: 05/16/18 15:43> - Labs CBC & Chem 7: 05/16/18 05:00 05/15/18 21:20 Laboratory Results - last 24 hr 05/16/18 05:00 WBC 16.8 H RBC 3.80 L Hgb 11.2 L Hct 33.2 L MCV 87.5 MCH 29.5 MCHC 33.7 RDW 13.5 Plt Count 200 MPV 9.7 Neut % (Auto) 81.3 H Lymph % (Auto) 10.0 Williams % (Auto) 8.0 Eos % (Auto) 0.5 Baso % (Auto) 0.2 Neut # (Auto) 13.6 H Lymph # (Auto) 1.7 Williams # (Auto) 1.3 H Eos # (Auto) 0.1 Baso # (Auto) 0.0 WBC Differential . Differential Comment Auto diff final Microbiology 05/12/18 20:02 Blood - Peripheral Aerobic Blood Culture - Preliminary No growth in 4 days 05/12/18 20:02 Blood - Peripheral Anaerobic Blood Culture - Preliminary No growth in 4 days 05/12/18 20:02 Blood - Peripheral Aerobic Blood Culture - Preliminary No growth in 4 days 05/12/18 20:02 Blood - Peripheral Anaerobic Blood Culture - Preliminary No growth in 4 days <Luigi Hewitt E - Last Filed: 05/17/18 01:08> Assessment and Plan - Plan - Leucocytosis, fever of unknown origin, with N/V, inability to tolerate PO intake for few days. LFTs wnl. States that approximately 2-3 days prior to admission she ate at a [employer] and 24 hours later, she started having nausea vomiting, also Patient reports that she also stayed at a local hotel and shaved in that area during the same time and reports she had tenderness in the right vulvar region. So far no origin found for fever or sepsis. Blood cultures with no growth so far. Dr. Cunningham of gynecology has been following the patient with no evidence of PID. A UA was done which is negative. ID following, no source found so far, she is on broad spectrum of abx, GC and chlamydia as well as RPR negative. CT of a/p showed cystic structure in the right adnexa, other bryant unremarkable. Pt states the emesis is yellow acid. She hasn't been able to move her bowels since admission, she feels like she had to go but only gas comes out. Denies previous hx of GI issues. No family hx of colitis or Crohn - swelling in the right vulvar for the past few days- foreign exchange student coordinator on the case, all work up negative so far 05/16/2018 current hemoglobin 11.2. No obvious bleeding. Drinking small amounts of clear liquids still has minimal appetite. No acute abdominal pain for now. Discussed with her EGD and colonoscopy which we are planning for the a.m. explain the bowel prep in detail and also discussed with nurse the need to assist patient through this bowel prep process. There is no current family in the room patient appears to be quiet but eventually started talking some. Mild anxiety noted. Orders placed for EGD colonoscopy. Will evaluate any GI needs, and symptom management, supportive care Plan: -Diet clear liquids - EGD/colonoscopy in a.m., consent -Monitor labs for any acute changes -Further recommendations after EGG/colonoscopy performed - Pt seen and examined by Dr. Hewitt and myself and this note is written on his behalf <Qi Guerrero M - Last Filed: 05/16/18 15:43> - Attending Attestation Patient seen and examined Agree with above Continue with current supportive care Monitor labs Plan for an EGD and a colonoscopy tomorrow <Luigi Hewitt - Last Filed: 05/17/18 01:08>
[2018-05-16] MEDS ORDERED: Magnesium Citrate Liq 300 ML Bottle PO ONE ×2 (16:00→18:00)
--- NOTE | 2018-05-16 17:56 | P.PN ---
Subjective Interval history: Doing about the same, Still not eating. On period and don't want to be examined. Physical Exam Vital signs: Vital Signs 05/15/18 20:00 05/16/18 00:00 05/16/18 04:00 Temperature 98.1 F 98.2 F 98.4 F Pulse Rate 98 H 87 89 Respiratory Rate 18 18 18 Blood Pressure 118/67 108/58 L 110/62 Pulse Oximetry 97 100 100 05/16/18 07:55 05/16/18 12:00 05/16/18 16:00 Temperature 97.8 F 97.4 F L 97.9 F Pulse Rate 91 H 100 H 98 H Respiratory Rate 18 18 18 Blood Pressure 101/57 L 103/59 L 116/56 L Pulse Oximetry 99 96 98 Intake & Output 05/15/18 05/16/18 05/16/18 18:59 06:59 18:59 Intake Total 2405 / 2405 1105 / 1105 300 / 300 Balance 2405 / 2405 1105 / 1105 300 / 300 Weight 48.2 kg Intake: IV 1205 / 1205 1105 / 1105 300 / 300 KCl Inj 10 MEQ In 1/2 Normal 1005 / 1005 1005 / 1005 Saline Inj 1,000 ML @ 100 mls/ hr IV.CONT .Q10H3M [facility] Rx#: [id number] Rocephin Inj 2,000 MG In NS Inj 100 / 100 100 / 100 100 ML @ 200 mls/hr IV.SIG Q24H [facility] Rx#:[id number] Flagyl 500 MG Inj 100 ML @ 100 100 / 100 100 / 100 200 / 200 mls/hr IV.SIG Q8H [facility] Rx#: [id number] Oral 1200 / 1200 Other: # Voids 4 3 Date of Last Bowel Movement 05/15/18 - Routine HEENT Exam Head: Present: normocephalic - Routine Neck Exam Present: supple - Routine Respiratory Exam Present: CTA bilaterally - Routine Cardiovascular Exam Present: RRR - Routine Abdominal Exam Present: soft Results - Labs CBC & Chem 7: 05/16/18 05:00 05/15/18 21:20 Laboratory Results - last 24 hr 05/15/18 05/15/18 05/15/18 16:06 21:20 21:20 WBC RBC Hgb Hct MCV MCH MCHC RDW Plt Count MPV Neut % (Auto) Lymph % (Auto) [place] % (Auto) Eos % (Auto) Baso % (Auto) Neut # (Auto) Lymph # (Auto) [place] # (Auto) Eos # (Auto) Baso # (Auto) WBC Differential Differential Comment ESR 57 H Sodium 142 Potassium 3.2 L Chloride 107 Carbon Dioxide 23.1 Anion Gap 12 BUN 5 L Creatinine 1.14 H Estimated GFR 74 L Random Glucose 83 Calcium 8.5 Magnesium 2.0 Total Bilirubin 0.2 AST 15 L ALT 11 Alkaline Phosphatase 103 C-Reactive Protein 15.00 H Total Protein 7.4 D Albumin 3.1 L Amylase 58 Lipase 124 Urine Eosinophils None seen 05/16/18 05:00 WBC 16.8 H RBC 3.80 L Hgb 11.2 L Hct 33.2 L MCV 87.5 MCH 29.5 MCHC 33.7 RDW 13.5 Plt Count 200 MPV 9.7 Neut % (Auto) 81.3 H Lymph % (Auto) 10.0 [place] % (Auto) 8.0 Eos % (Auto) 0.5 Baso % (Auto) 0.2 Neut # (Auto) 13.6 H Lymph # (Auto) 1.7 [place] # (Auto) 1.3 H Eos # (Auto) 0.1 Baso # (Auto) 0.0 WBC Differential . Differential Comment Auto diff final ESR Sodium Potassium Chloride Carbon Dioxide Anion Gap BUN Creatinine Estimated GFR Random Glucose Calcium Magnesium Total Bilirubin AST ALT Alkaline Phosphatase C-Reactive Protein Total Protein Albumin Amylase Lipase Urine Eosinophils Microbiology 05/12/18 20:02 Blood - Peripheral Aerobic Blood Culture - Preliminary No growth in 4 days 05/12/18 20:02 Blood - Peripheral Anaerobic Blood Culture - Preliminary No growth in 4 days 05/12/18 20:02 Blood - Peripheral Aerobic Blood Culture - Preliminary No growth in 4 days 05/12/18 20:02 Blood - Peripheral Anaerobic Blood Culture - Preliminary No growth in 4 days Assessment and Plan - Plan HD #5 FUO W/U is negative so far. CXs and ct and GC are all negative. Fever is resolving nicely on the antibiotics. Still has significant leukocytosis with a left shift. Hypokalemia. Will check a magnesium level and increase the K in the IVF. Nausea and vomiting checking with GI and follow up soon.
[2018-05-16] MEDS: Famotidine 20 MG Tablet PO SCH (23:27)
[2018-05-17] MEDS ORDERED: Sodium Chlor 0.9% Inj 500 ML IV.SIG SCH (05:00)
[2018-05-17] MEDS: Potassium Chloride Inj 10 MEQ in Sodium Chloride 0.45 % Inj 1,000 ML IV.CONT SCH ×2 (07:04→15:17)
[2018-05-17] MEDS: Fluconazole 100 MG Tablet PO SCH (08:27)
[2018-05-17] MEDS: Linezolid 600 MG Tablet PO SCH (08:27)
--- NOTE | 2018-05-17 13:24 | P.PCN ---
Date of procedure: 05/17/18 Pre-op diagnosis: Nausea vomiting leukocytosis fever Procedure: PROCEDURE PERFORMED EGD followed by colonoscopy INDICATION FOR PROCEDURE Nausea with vomiting and leukocytosis with a fever PROCEDURE: The procedure, risks and benefits were discussed with Patient/POA and informed consent was obtained. Anesthesia sedated Patient with Diprivan. Patient was placed in the left lateral decubitus position. EGD: The Pentax videoscope was introduced through the oropharynx and advanced to the second portion of the duodenum under direct visualization. Retroflexion was performed in the stomach. FINDINGS: The esophagus this was normal Stomach this was normal The duodenum this was normal Colonoscopy: The Pentax videoscope was introduced through the rectum and advanced to cecum where the ileocecal valve and appendiceal orifice were identified. Retroflexion was performed in the rectum. Colonic prep was good FINDINGS: Colonic withdrawal time greater than 6 minutes. As the scope was slowly withdrawn colonic mucosa was carefully inspected colonic mucosa appeared to be unremarkable and within normal limits all the way through so is retroflexion and rectal examination ESTIMATED BLOOD LOSS: None SPECIMENS REMOVED: None COMPLICATIONS: None IMPRESSION: Normal EGD Normal colonoscopy PLAN: Advance diet as tolerated Not much to add from a GI perspective we will sign off Anesthesia: MAC Surgeon: Luigi Hewitt Condition: stable Disposition: floor
--- NOTE | 2018-05-17 16:22 | P.PNID ---
Subjective Remarks: Ms. Mccann is a 17-year-old -[place] female with no significant past medical history. Patient was admitted for evaluation of fever of unknown origin. Patient reports that approximately 2-3 days prior to admission she ate at a [employer] and 24 hours after that she started having nausea vomiting. Patient reports that she also stayed at a local hotel/resort and used their toiletries. Patient also reports having shaved in that area during the same time and reports she had tenderness in the right vulvar region. She reports white discharge per vaginally off and on. Patient continues to have fever during hospitalization and has an elevated white count as well suggestive of sepsis. Workup has been initiated and cultures are no growth so far. Dr. Cunningham of gynecology has been following the patient and reports that patient has not had any have any evidence of pelvic inflammatory disease in this admission. A UA was done which is negative. We will check GC and chlamydia as well as RPR. Infectious diseases consulted for evaluation and management of fever of unknown origin. Pertinent positives and negatives for evaluation of fever of unknown origin No rash No joint pains No recent travel No recent experimentation with other routes of sex such as oral anal. Patient denies any perirectal discomfort. Overnight events reviewed. No fevers Not eating much. No nausea and vomiting. No abd pain. WBC improved to 16 now. Patient still reports nausea. Had EGD and Colonoscopy which were both normal per my dw . Antibiotics: Ceftriaxone IV Diflucan Zyvox Lines: Line sites okay. Past Medical History: Reviewed. Allergies/Adverse Reactions: Allergies No Known Allergies Allergy (Verified 05/12/18 18:32) Objective Vital Signs 05/16/18 20:00 05/17/18 00:00 05/17/18 04:00 Temperature 98.0 F 98.1 F 98.1 F Pulse Rate 106 H 71 84 Respiratory Rate 20 18 18 Blood Pressure 129/62 105/60 102/59 L Pulse Oximetry 96 97 97 05/17/18 08:00 05/17/18 09:00 05/17/18 13:26 Temperature 97.8 F 98.8 F Pulse Rate 80 80 63 Respiratory Rate 16 16 Blood Pressure 98/54 L 111/56 L Pulse Oximetry 98 100 Intake & Output 05/16/18 05/17/18 05/17/18 18:59 06:59 18:59 Intake Total 1400 / 1400 200 / 200 Balance 1400 / 1400 200 / 200 Weight 46.6 kg Intake: IV 300 / 300 200 / 200 LR 1000 mL Inj 1,000 ML @ 30 200 / 200 mls/hr IV.SIG .Q24H [facility] Rx#: [id number] Rocephin Inj 2,000 MG In NS Inj 100 / 100 100 ML @ 200 mls/hr IV.SIG Q24H [facility] Rx#:[id number] Flagyl 500 MG Inj 100 ML @ 100 200 / 200 mls/hr IV.SIG Q8H [facility] Rx#: [id number] Oral 1100 / 1100 Other: # Voids 6 2 Date of Last Bowel Movement 05/15/18 05/17/18 05/12/18 20:02 Blood - Peripheral Aerobic Blood Culture - Final No growth in 5 days 05/12/18 20:02 Blood - Peripheral Anaerobic Blood Culture - Final No growth in 5 days 05/12/18 20:02 Blood - Peripheral Aerobic Blood Culture - Final No growth in 5 days 05/12/18 20:02 Blood - Peripheral Anaerobic Blood Culture - Final No growth in 5 days Lab - Hematology Results 05/15/18 05/16/18 21:20 05:00 WBC 16.8 H RBC 3.80 L Hgb 11.2 L Hct 33.2 L MCV 87.5 MCH 29.5 MCHC 33.7 RDW 13.5 Plt Count 200 MPV 9.7 Neut % (Auto) 81.3 H Lymph % (Auto) 10.0 [place] % (Auto) 8.0 Eos % (Auto) 0.5 Baso % (Auto) 0.2 Neut # (Auto) 13.6 H Lymph # (Auto) 1.7 [place] # (Auto) 1.3 H Eos # (Auto) 0.1 Baso # (Auto) 0.0 WBC Differential . Differential Comment Auto diff final ESR 57 H Lab - Chemistry Results 05/15/18 21:20 Sodium 142 Potassium 3.2 L Chloride 107 Carbon Dioxide 23.1 Anion Gap 12 BUN 5 L Creatinine 1.14 H Estimated GFR 74 L Random Glucose 83 Calcium 8.5 Magnesium 2.0 Total Bilirubin 0.2 AST 15 L ALT 11 Alkaline Phosphatase 103 C-Reactive Protein 15.00 H Total Protein 7.4 D Albumin 3.1 L Amylase 58 Lipase 124 Imaging: ITS Impressions Abdomen/Pelvis CT 05/12/18 20:01 CONCLUSION: 1. 3.1 x 2.1 cm cystic structure in the right adnexa characteristic of an ovarian cyst. 2. Study is otherwise unremarkable. Chest X-Ray 05/12/18 20:01 CONCLUSION: No acute cardiopulmonary disease. Physical Exam: GENERAL: Well-nourished well-developed, not in acute distress SKIN: Cool and dry, no generalized rash HEAD: Atraumatic. Normocephalic. No temporal or scalp tenderness. EYES: Pupils equal round and reactive. Scleral icterus. No injection or drainage. No petechia ENT: Nothing abnormal detected NECK: Trachea midline. Supple, nontender, no meningeal signs. CARDIOVASCULAR: HS audible. RESPIRATORY: Clear to auscultation bilaterally. GASTROINTESTINAL: Abdomen soft nontender. MUSCULOSKELETAL: Extremities without clubbing, cyanosis. NEUROLOGICAL: Alert oriented 3. Nonfocal. DISTILLERY LABORER exam minimal induration noted. Psych cooperative IV line sites ok. Assessment and Plan - Plan Sepsis present on admission Fever of unknown origin likely source appears to be the vulvar abscess/ cellulitis Vulvar abscess/cellulitis Leukocytosis Recommendations: DC Ceftriaxone IV Start Keflex oral for 3 more days if WBC normal. script written DC Zyvox DC Diflucan Continue topical antifungal. Follow cultures Follow clinically Case discussed with patient and RN. trudy Alanis: will follow serum test and CBC. Hopefully home soon. Addendum: RN called Hcg negative. WBC 12. Keflex script written Will sign off please call back if any change in clinical condition or questions.
[2018-05-17 16:34] LABS: Baso # (Auto) 0.1 th/mm3 (0.0-0.2); Baso % (Auto) 0.4 % (0.0-2.0); Eos # (Auto) 0.1 th/mm3 (0.0-0.4); Eos % (Auto) 1.1 % (0.0-4.0); Hematocrit 34.5 % (35.0-46.0); Hemoglobin 11.7 gm/dL (11.6-15.3); Lymph # (Auto) 1.8 th/mm3 (1.0-4.8); Lymph % (Auto) 14.1 % (9.0-44.0); Mean Corpuscular HGB Conc 33.8 % (32.0-36.0); Mean Corpuscular Hemoglobin 29.3 pg (27.0-34.0); Mean Corpuscular Volume 86.5 fL (80.0-100.0); Mean Platelet Volume 9.4 fL (7.0-11.0); Mono # (Auto) 1.3 th/mm3 (0.0-0.9); Mono % (Auto) 10.1 % (0.0-8.0); Neut # (Auto) 9.5 th/mm3 (1.8-7.7); Neut % (Auto) 74.3 % (16.0-70.0); Platelet Count 253 th/mm3 (150-450); Red Blood Count 3.99 mil/mm3 (4.00-5.30); Red Cell Distribution Width 13.4 % (11.6-17.2); White Blood Count 12.8 th/mm3 (4.0-11.0)
[2018-05-17 16:48] LABS: Alanine Aminotransferase 19 U/L (9-42); Albumin 2.9 g/dL (3.4-5.0); Anion Gap 10 meq/L (5-15); Aspartate Aminotransferase 13 U/L (16-38); Blood Urea Nitrogen 7 mg/dL (7-18); Calcium 8.4 mg/dL (8.5-10.1); Carbon Dioxide 22.3 meq/L (21.0-32.0); Chloride 110 meq/L (98-107); Glomerular Filtration Rate 79 mL/min (>89); Glucose,Random 110 mg/dL (74-106); Potassium 3.3 meq/L (3.5-5.1); Sodium 142 meq/L (136-145)
[2018-05-17 16:50] LABS: Alkaline Phosphatase 84 U/L (45-117); Total Protein 7.6 g/dL (6.4-8.2)
--- NOTE | 2018-05-17 17:05 | P.PN ---
Subjective Interval history: Doing better. Had my tests today Physical Exam Vital signs: Vital Signs 05/16/18 20:00 05/17/18 00:00 05/17/18 04:00 Temperature 98.0 F 98.1 F 98.1 F Pulse Rate 106 H 71 84 Respiratory Rate 20 18 18 Blood Pressure 129/62 105/60 102/59 L Pulse Oximetry 96 97 97 05/17/18 08:00 05/17/18 09:00 05/17/18 13:26 Temperature 97.8 F 98.8 F Pulse Rate 80 80 63 Respiratory Rate 16 16 Blood Pressure 98/54 L 111/56 L Pulse Oximetry 98 100 Intake & Output 05/16/18 05/17/18 05/17/18 18:59 06:59 18:59 Intake Total 1400 / 1400 200 / 200 Balance 1400 / 1400 200 / 200 Weight 46.6 kg Intake: IV 300 / 300 200 / 200 LR 1000 mL Inj 1,000 ML @ 30 200 / 200 mls/hr IV.SIG .Q24H [facility]AC[facility] Rx#: [id number] Rocephin Inj 2,000 MG In NS Inj 100 / 100 100 ML @ 200 mls/hr IV.SIG Q24H [facility] Rx#:[id number] Flagyl 500 MG Inj 100 ML @ 100 200 / 200 mls/hr IV.SIG Q8H JACINTA Rx#: [id number] Oral 1100 / 1100 Other: # Voids 6 2 Date of Last Bowel Movement 05/15/18 05/17/18 Results - Labs CBC & Chem 7: 05/17/18 16:10 05/17/18 16:10 Laboratory Results - last 24 hr 05/17/18 05/17/18 05/17/18 16:10 16:10 16:10 WBC 12.8 H RBC 3.99 L Hgb 11.7 Hct 34.5 L MCV 86.5 MCH 29.3 MCHC 33.8 RDW 13.4 Plt Count 253 MPV 9.4 Neut % (Auto) 74.3 H Lymph % (Auto) 14.1 [place] % (Auto) 10.1 H Eos % (Auto) 1.1 Baso % (Auto) 0.4 Neut # (Auto) 9.5 H Lymph # (Auto) 1.8 [place] # (Auto) 1.3 H Eos # (Auto) 0.1 Baso # (Auto) 0.1 WBC Differential . Differential Comment Auto diff final Sodium 142 Potassium 3.3 L Chloride 110 H Carbon Dioxide 22.3 Anion Gap 10 BUN 7 Creatinine 1.08 H Estimated GFR 79 L Random Glucose 110 H Calcium 8.4 L Total Bilirubin 0.3 AST 13 L ALT 19 Alkaline Phosphatase 84 Total Protein 7.6 Albumin 2.9 L Beta HCG, Quant Less than 1 Microbiology 05/12/18 20:02 Blood - Peripheral Aerobic Blood Culture - Final No growth in 5 days 05/12/18 20:02 Blood - Peripheral Anaerobic Blood Culture - Final No growth in 5 days 05/12/18 20:02 Blood - Peripheral Aerobic Blood Culture - Final No growth in 5 days 05/12/18 20:02 Blood - Peripheral Anaerobic Blood Culture - Final No growth in 5 days Assessment and Plan - Plan HD #6 FUO Resolved will continue po abs for several days Leukocytosis resolved N/v w/u is negative
[2018-05-17] MEDS: Famotidine 20 MG Tablet PO SCH (22:29)
[2018-05-18] MEDS: Potassium Chloride Inj 10 MEQ in Sodium Chloride 0.45 % Inj 1,000 ML IV.CONT SCH (04:33)
--- NOTE | 2018-05-18 10:30 | P.PNOB ---
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 - Time Spent With Patient Total time spent is greater than 50% in coordination of care (as documented) at patient's floor/unit and/or counseling patient: less than 15 minutes Physical Exam Vital signs: Temp Pulse Resp BP Pulse Ox 98.0 F 67 17 110/65 98 05/18/18 08:00 05/18/18 08:00 05/18/18 08:00 05/18/18 08:00 05/18/18 08:00 - Constitutional no acute distress - Routine Respiratory Exam Present: CTA bilaterally - Routine Cardiovascular Exam Present: RRR, irregular rhythm - Routine Abdominal Exam Present: soft, normoactive bowel sounds - Detailed Neurological Exam: Coma Scale Eye Opening: Spontaneous Verbal Response: Oriented Motor Response: Obey commands N[place] Coma Scale Total: 15 Results - Labs CBC & Chem 7: 05/17/18 16:10 05/17/18 16:10 Labs: Laboratory Results - last 24 hr 05/17/18 05/17/18 05/17/18 16:10 16:10 16:10 WBC 12.8 H RBC 3.99 L Hgb 11.7 Hct 34.5 L MCV 86.5 MCH 29.3 MCHC 33.8 RDW 13.4 Plt Count 253 MPV 9.4 Neut % (Auto) 74.3 H Lymph % (Auto) 14.1 [place] % (Auto) 10.1 H Eos % (Auto) 1.1 Baso % (Auto) 0.4 Neut # (Auto) 9.5 H Lymph # (Auto) 1.8 [place] # (Auto) 1.3 H Eos # (Auto) 0.1 Baso # (Auto) 0.1 WBC Differential . Differential Comment Auto diff final Sodium 142 Potassium 3.3 L Chloride 110 H Carbon Dioxide 22.3 Anion Gap 10 BUN 7 Creatinine 1.08 H Estimated GFR 79 L Random Glucose 110 H Calcium 8.4 L Total Bilirubin 0.3 AST 13 L ALT 19 Alkaline Phosphatase 84 Total Protein 7.6 Albumin 2.9 L Beta HCG, Quant Less than 1
--- NOTE | 2018-06-21 15:52 | P.DS ---
Date of admission: 05/13/18 00:18 Primary care physician: Rosy Primary Care Physician Attending physician on discharge: dr Cunningham Anticipated date of discharge: 05/18/18 Brief History from admission: Pt had swelling in her vulva and was treating herself for a yeast infection. She went to the ER for increased pain and fever. DS: Diagnosis - Discharge Diagnosis (1) Fever Status: Acute (2) Leukocytosis Status: Acute DS: Summary Hospital Course: Admission for vulvar pain and sepsis vulvar did not seem to be the cause of infection consult to infectious disease pt was treated with IV antibiotics and then with oral antibiotics where it was discovered that pt was not taking her oral meds all blood cultures were negative GI consult for nausea and vomiting , EDG/colonoscopy were both normal leukocytosis, fever, vulvar pain resolved - Time Spent with Patient Total time spent providing and/or coordinating discharge services: Less than 30 minutes - Quality: VTE Deep Vein Thrombosis/Pulmonary Embolism Present on Admission: No Exam Narrative: see last hospital note Results Procedures completed during hospitalization: edg colonoscopy - Impressions ITS Impressions Abdomen/Pelvis CT 05/12/18 20:01 CONCLUSION: 1. 3.1 x 2.1 cm cystic structure in the right adnexa characteristic of an ovarian cyst. 2. Study is otherwise unremarkable. Chest X-Ray 05/12/18 20:01 CONCLUSION: No acute cardiopulmonary disease. Discharge Plan - Discharge Disposition Patient Disposition: 01 Discharge Home - Discharge Condition Condition: Stable - Discharge Order Discharge Orders: Discharge Order (Routine); Ordered 05/18/18 Ordered By: Lupis Nova SUPERVISOR FITTING Clear for Discharge (Routine); Ordered 05/18/18 Ordered By: Lupis Nova - Physicians Team Primary Care Provider: Primary Care Rosy Toussaint Attending Provider: Paxton Cunningham Other Providers: Vanda Warren MD ; Luigi Hewitt MD
== END 2018-05-18 12:20 | disposition home or self-care (01) ==
LOC: NEPC 18:14 → NEDA 05-13 00:18 → N07 05-13 01:10
PROVIDERS: ADMIT Obstetrics & Gynecology; ATTEND Obstetrics & Gynecology
PROC: PANENDO (2018-05-17 12:48)
PROC: COLONOS (2018-05-17 12:48)